=== PATIENT | female | born 1990 | race Caucasian/White ===

== ENCOUNTER 2023-03-05 00:27 | Emergency (ER) | payer MEDICAID, SELFPAY ==
[2023-03-05] VITALS (9 sets, daily range): BP systolic 95–126; BP diastolic 57–81; PULSE 66–82; RESP 16–18; TEMP 36.9; O2SAT 97–100; BMI 28.8
--- NOTE | 2023-03-05 00:46 | W.ED.ABDPA2 ---
HPI - Abdominal Pain General: Chief Complaint: Abdominal Pain Stated Complaint: Sent from [facility] for Twisted Ovary Possible Time Seen by Provider: 03/05/23 00:37 History of Present Illness: 32-year-old lady presenting to the emergency department for evaluation of pelvic pain. She does have a history of dermoid cyst requiring removal. She notes onset of symptoms without known specific provoking event 2 days ago. Describes it as a tearing sensation in her vagina. She was seen at [facility] in [place] however they do not have ultrasonography and was referred here for evaluation of possible torsion. She notes cervical and right lower quadrant abdominal pain. Severe in intensity. Denies vaginal bleeding or discharge. No urinary symptoms. They collected urine GC chlamydia, urinalysis which did not show evidence of urinary tract infection. hCG was negative. WBC 8.8, hemoglobin 12.6, hematocrit 37, platelet 313. CMP with sodium 137, potassium 3.8, chloride 103, bicarb 22, BUN 13, creatinine 0.76. Normal glucose. No transaminitis. Toradol did not significantly improve her symptoms. Onset (ago): day(s) Severity: severe Quality: cramping, stabbing and other Relieving factors: nothing Review of Systems General: Reports: 10 or more systems reviewed and unremarkable except in HPI and below PFSH ED PFSH: Medical History (Updated 03/17/23 @ 20:39 by Timur Carson MD) No significant past medical history Surgical History (Updated 03/17/23 @ 20:39 by Timur Carson MD) No significant past surgical history Physical Exam Const: COMMON NORMALS: alert GENERAL APPEARANCE: cooperative and well developed HENMT: COMMON NORMALS: normocephalic and atraumatic HEAD & SCALP: normocephalic and atraumatic Eye: COMMON NORMALS: conjunctivae normal CONJUNCTIVA: Yes conjunctivae normal SCLERA: sclerae normal Neck/C-Spine: COMMON NORMALS: supple GENERAL: Yes trachea midline Resp: COMMON NORMALS: clear to auscultation bilaterally EFFORT & INSPECTION: Yes able to speak in complete sentences AUSCULTATION: clear to auscultation bilaterally Cardio: COMMON NORMALS: regular rate and regular rhythm RATE: regular rate RHYTHM: regular rhythm GI: COMMON NORMALS: Soft to palpation PALPATION: Yes Soft to palpation, Yes Tenderness to palpation present (GI), No Guarding due to palpation present (GI) and No Rigid due to palpation : OTHER: Performed with consumer relations complaint clerk present. Normal external exam. No abnormality identified on speculum exam. Generalized tenderness with tenderness of the cervix on bimanual exam. No palpable masses or adnexal fullness. Extremity: GENERAL: Yes normal exam except as noted and No edema Neuro: COMMON NORMALS: moves all extremities SENSORIUM/ORIENTATION: Yes alert and No Orientation impaired Psych: COMMON NORMALS: mental status grossly normal and Normal thought process present THOUGHT PROCESS: Normal thought process present Course Vital Signs: Vital signs: Vital Signs Temperature 98.4 F 03/05/23 00:36 Pulse Rate 66 03/05/23 04:47 Respiratory Rate 18 03/05/23 04:47 Blood Pressure 120/74 03/05/23 04:47 Pulse Oximetry 100 03/05/23 04:47 Oxygen Delivery Me thod Room Air 03/05/23 04:33 MDM - Abdominal Pain Medical Decision Making 32-year-old lady present pelvic pain. Exam as above. Outside labs reviewed. Ultrasound shows hemorrhagic left ovarian cyst however pain is mostly on the right and midline. No ovarian torsion. Wet prep negative. Apparently our in-house ability to perform GC/chlamydia testing is currently down and there was an issue with the collected swab however as noted prior facility collected these studies. Patient given fluids and analgesia and feels improved. Etiology of symptoms is unclear. Somewhat low clinical suspicion for infectious etiology-acutely however given cervical motion tenderness and lack of clear explanation for symptoms the guidelines recommend empiric treatment which will be provided. This was discussed with patient who was agreeable. The results of ED evaluation were discussed with the patient including prescriptions and/or symptomatic cares (if applicable) including appropriate and responsible use, followup plan, and return precautions. The patient verbalized understanding and felt safe for discharge. Medical Records I reviewed the patient's medical records. Lab Data I reviewed the patient's lab results. Labs/Radiology: Radiology Impressions Pelvis Ultrasound 03/05/23 01:36 IMPRESSION: 1. Hemorrhagic left ovary cyst. 2. Negative for ovarian torsion. Laboratory Results C.trachomatis RNA (TMA) Cancelled 03/05/23 02:00 Chlamydia/GC Comment Cancelled 03/05/23 02:00 N.gonorrhoeae RNA (TMA) Cancelled 03/05/23 02:00 T. vaginalis Amp RNA Cancelled 03/05/23 02:00 Discharge Plan Discharge Patient Disposition: Home Clinical Impression: Pelvic pain, Ovarian cyst rupture, Cervical motion tenderness Condition: Stable Prescriptions: New ondansetron 4 mg tablet,disintegrating 4 mg PO Q8H PRN (Reason: nausea and vomiting) Qty: 15 0RF oxycodone 5 mg tablet 2.5 mg PO Q4H PRN (Reason: pain) Qty: 10 0RF doxycycline hyclate 100 mg tablet 100 mg PO BID 14 Days Qty: 28 0RF metronidazole 500 mg tablet 500 mg PO Q12H 14 Days Qty: 28 0RF Diflucan 150 mg tablet 150 mg PO Q3D PRN (Reason: yeast infection) Qty: 2 0RF Discharge Orders: Discharge ED (Routine); Ordered 03/05/23 Ordered By: Timur Carson Discharge Diet: Usual diet Discharge Activity: Increase activity as tolerated Patient Instructions: Pelvic Pain in Women (ED), Ruptured Ovarian Cyst (ED), Opioid Safety Activity Restrictions/Additional Instructions: Thank you for visiting the emergency department. You were seen and evaluated for pelvic pain. The exact cause of your symptoms is unclear as discussed. Ultrasound did demonstrate a hemorrhagic left ovarian cyst which may be contributing to your pain. Additional causes are possible infection which will be treated empirically. I would expect improvement in the next few days. You may use [id number] medications such as acetaminophen and ibuprofen for pain however please do not exceed the daily recommended dosage as listed on the packaging and please keep in mind that many namebrand medications contain the same active ingredients. Please avoid these medications if previously instructed to do so by another physician due to other underlying medical condition. Please follow-up with your primary care provider or SPEECH/LANGUAGE THERAPIST physician. Return for uncontrolled symptoms or anything else that you are concerned about and feel needs emergency department evaluation. 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
[2023-03-05] MEDS: sodium chloride 0.9% 1,000 ML 999 ML IV (01:26)
[2023-03-05] MEDS: fentaNYL 50 mcg/mL INJ 2mL IVP ×2 (01:26→03:29)
--- NOTE | 2023-03-05 01:36 | USR_ITS ---
PROCEDURE INFORMATION: Exam: US Pelvis Complete, Transabdominal and US Pelvis, Transvaginal and US Duplex Artery and Vein, Ovaries, Complete Exam date and time: 03/05/2023 2:46 AM Age: 32 years old Clinical indication: Pelvic pain; Prior surgery; Surgery date: 6+ months; Surgery type: Right dermoid cyst excision July 2022. Patient HX: [id number]; Additional info: Rlq pain, eval torsion vs other LABS AND CLINICAL REPORTS: Last menstrual period start date: 02/04/2023 TECHNIQUE: Imaging protocol: Real-time complete transabdominal and transvaginal pelvic ultrasound with image documentation. Transvaginal imaging was used for better evaluation of the endometrium, adnexa, and/or cervix. Real-time duplex ultrasound scan of the arterial and venous flow of the ovaries with B-mode, color Doppler flow and spectral waveform analysis. Duplex exam was performed to evaluate for torsion and other vascular conditions. COMPARISON: No relevant prior studies available. FINDINGS: Uterus: Uterus measures 9.3 cm x 4.6 cm x 4.4 cm. Right ovary/adnexa: Right ovary measures 3.3 cm x 3.9 cm x 2 cm. Right ovarian volume is 11.7 mL. Normal appearance. Small follicles. Unremarkable internal vascularity including normal arterial and venous spectral Doppler waveform pattern. Left ovary/adnexa: Left ovary measures 5.4 cm x 5.8 cm x 4.2 cm. Left ovarian volume is 68.9 mL. Circumscribed hemorrhagic cyst measures 4.8 cm. Normal vascularity including unremarkable arterial and venous spectral Doppler waveform pattern. Intraperitoneal space: Small volume anterior pelvis intraperitoneal fluid. Urinary bladder: Normal. US/US pelvic complete* [id number] IMPRESSION: 1. Hemorrhagic left ovary cyst. 2. Negative for ovarian torsion.
[2023-03-05] MEDS: cefTRIAXone 500 MG in water for injection-sterile 1 ML IM (04:25)
[2023-03-05] MEDS: metroNIDAZOLE 500 MG Tablet PO (04:25)
[2023-03-05] MEDS: doxycycline 100 mg Tablet PO (04:25)
== END 2023-03-05 04:58 | disposition home or self-care (01) ==
PROVIDERS: Emergency Provider Emergency Medicine
DX: R10.2 Pelvic and perineal pain (principal); N83.292 Other ovarian cyst, left side
CPT/HCPCS: 76856; 87070; 87205; 87210; 96361; 96374; 96376; 99284; J0696; J3010; J7030

== ENCOUNTER 2023-06-13 16:00 | Outpatient (CLI) | payer MEDICAID, SELFPAY ==
--- NOTE | 2023-06-13 16:11 | USR_ITS ---
PROCEDURE INFORMATION: Exam: US First Trimester, Transabdominal and US , Transvaginal Exam date and time: 06/13/2023 4:28 PM Age: 33 years old Clinical indication: Screening exam; Routine US, uterus; Additional info: Encounter for supervision of other normal ; First t LABS AND CLINICAL REPORTS: Last menstrual period start date: 03/13/2023 Gestational age (Established): 13 w 1 d Estimated due date (Established): 12/18/2023 TECHNIQUE: Imaging protocol: Real-time transabdominal obstetrical ultrasound of the maternal pelvis and a first trimester , less than 14 weeks 0 days, with image documentation. Transvaginal imaging was used for better evaluation of the fetus, adnexa, and/or cervix. COMPARISON: US pelvic complete* [id number] 03/05/2023 2:46 AM FINDINGS: Gestation: Yolk sac measures 5 mm. Gestational sac with a developing fetus Embryonic/ heart rate: 171 bpm Extra-embryonic membranes/Placenta: Unremarkable. No subchorionic bleed. Amniotic fluid: Amniotic fluid and extra-amniotic fluid is normal for gestational age. BIOMETRY: Gestational age (AUA): 10 w 0 d [place]-Rump length (CRL): 31.1 mm. EGA (CRL) is 10 w 0 d MATERNAL: Uterus: Unremarkable. 9.1 cm x 7.6 cm x 11.7 cm Cervix: Unremarkable. Right ovary/adnexa: Unremarkable ovary. 2.3 cm x 2.2 cm x 3 cm Left ovary/adnexa: Unremarkable ovary. 2.5 cm x 2.2 cm x 2 cm Intraperitoneal space: No intraperitoneal free fluid. US/US OB <= 14 weeks fetus [id number] IMPRESSION: 1. Single living intrauterine gestation. 2. Gestational age 10 weeks. 3. Normal bilateral ovaries
== END 2023-06-13 16:01 | disposition home or self-care (01) ==
LOC: RAD 16:01
PROVIDERS: PCP Family Medicine; Visit Provider Family Medicine
DX: Z34.01 Encounter for supervision of normal first pregnancy, first trimester (principal)
CPT/HCPCS: 76801

== ENCOUNTER 2023-06-23 10:19 | Emergency (ER) | payer MEDICAID, SELFPAY ==
--- NOTE | 2023-06-23 10:28 | US_ITS ---
WS: [id number] EARLY OBSTETRICAL ULTRASOUND (<14 WEEKS). HISTORY: abdominal pain, 12 wks preg COMPARISON: 06/13/2023 Single intrauterine gestational sac is identified. Cardiac activity at 114 BPM. Whiteside-rump length jodi sures 2.7 cm which corresponds to a gestation of 9w3d. Normal-appearing yolk sac and amnion demonstra charlie. No subchorionic hemorrhage. No free fluid. Neither ovary has been identified or evaluated. IMPRESSION: 1. Single intrauterine gestation of 9 weeks 3 days with an EDC of 01/23/2024. 2. Normal cardiac activity. Note: The embryo has not increased in size as normally expected. This may be due to only transabdomin al imaging being submitted. On the examination of 06/13/2023 the age at that time was 10 weeks and 0 days. Recommend short-term transvaginal OB ultrasound evaluation. Notified ISABEL Toscano at 06/23/2023 11:44 AM.
[2023-06-23 10:39] VITALS: BP 95/65; PULSE 68; RESP 16; TEMP 37.1; O2SAT 100; BMI 30.4
[2023-06-23 11:01] LABS: Basophils % 0.3 %; Eosinophils % 0.2 %; Hematocrit 37.1 % (36-47); Lymphocytes # 1.8 10^3/uL (0.8-4.8); Mean Corpuscular HGB Conc 33.7 g/dL (30-55); Mean Corpuscular Hemoglobin 30.9 pg (27-33); Mean Corpuscular Volume 91.8 fl (85-98); Mean Platelet Volume 9.3 fL (7.4-10.4); Monocytes # 0.6 10^3/uL (0.2-0.9); Monocytes % 6.7 %; Neutrophils # 6.18 10^3/uL (1.8-7.7); Neutrophils % 71.5 %; Nucleated Red Blood Cells % 0 %; Platelet Count 314 10^3/cmm (157-399); Red Blood Count 4.04 10^6/uL (3.85-5.65); Red Cell Distribution Width 12.3 % (12.1-15.1); White Blood Count 8.66 10^3/uL (3.29-11.43)
[2023-06-23 11:16] LABS: Alanine Aminotransferase 8 U/L (0-33); Albumin Level 4.2 g/dL (3.5-5.2); Alkaline Phosphatase 48 U/L (35-105); Anion Gap 10.9 (5-19); Aspartate Amino Transferase 12 U/L (0-32); Blood Urea Nitrogen 7 mg/dL (6-20); Calcium 9.5 mg/dL (8.5-10.5); Carbon Dioxide 23 mmol/L (22-29); Chloride 104 mmol/L (98-107); Globulin 3.1 g/dL (1.3-4.6); Glucose 85 mg/dL (65-115); Lipase 21 U/L (13-60); Osmolality Calculated 275 mOsm/kg (285-295); Potassium 3.9 mmol/L (3.5-5.1); Sodium 134 mmol/L (136-145); Total Bilirubin 0.3 mg/dL (0.15-1.2); Total Protein 7.3 g/dL (6.6-8.7)
--- NOTE | 2023-06-23 12:22 | W.ED.ABDPA2 ---
HPI - Abdominal Pain General: Chief Complaint: Abdominal Pain Stated Complaint: shooting pains abd/preg 12 wks Time Seen by Provider: 06/23/23 12:16 Source: patient Mode of arrival: ambulatory History of Present Illness: 33-year-old female comes in today complaining of right-sided pelvic pain radiating down into the groin no dysuria urgency or frequency no vaginal discharge. Its been intermittent overnight no vaginal bleeding. She has not had any complications of this she has had previous miscarriages in the past though she cannot recall exactly how far along she was with those. She currently is at approximately 11 weeks had an ultrasound a week ago that was normal. MD elicited complaint: abdominal pain Pertinent past history: other (Currently 11 weeks) Onset (ago): day(s) Pain Consistency: constant Location: RLQ and Groin Quality: sharp Associated Symptoms: Denies anorexia, belching, bloating, change in bowel habits, change in stool character, chills, coffee ground emesis, constipation, GI cramping, diarrhea, dyspepsia, dysuria, excessive flatus, fever(s), heartburn, hematochezia, hematuria, hematemesis, fecal incontinence, loose stools, melena, nausea, poor appetite, syncope and vomiting Review of Systems Const: Denies: fever(s) or chills Card: Denies: chest pain or syncope Resp: Denies: dyspnea GI: Denies: abdominal pain, nausea, vomiting, hematemesis, coffee ground emesis, heartburn, diarrhea, constipation, bloating, GI cramping, belching, excessive flatus, fecal incontinence, change in bowel habits, change in stool character, hematochezia or melena : Denies: dysuria, urinary frequency, urinary urgency or hematuria Musc: Denies: neck pain or back pain Skin/Breast: Denies: rash PFSH ED PFSH: Medical History No significant past medical history Surgical History No significant past surgical history Physical Exam Const: COMMON NORMALS: no acute distress GENERAL APPEARANCE: cooperative and comfortable ORIENTATION/CONSCIOUSNESS: Yes awake, Yes oriented to person, Yes oriented to place and Yes oriented to time HENMT: COMMON NORMALS: normocephalic, atraumatic and hearing grossly normal bilaterally HEAD & SCALP: normocephalic and atraumatic Resp: COMMON NORMALS: normal respiratory effort, No retractions, No use of accessory muscles and clear to auscultation bilaterally AUSCULTATION: clear to auscultation bilaterally Cardio: COMMON NORMALS: regular rate, regular rhythm and No murmurs present (Cardio) RATE: regular rate RHYTHM: regular rhythm GI: COMMON NORMALS: Soft to palpation and No hepatosplenomegaly present AUSCULTATION: Yes normoactive bowel sounds PALPATION: Yes Soft to palpation, No Tenderness to palpation present (GI), No Guarding due to palpation present (GI) and Yes No hepatosplenomegaly present Extremity: COMMON NORMALS: normal to inspection, capillary refill normal, no clubbing, cyanosis or edema, no calf tenderness and no pedal edema Neuro: SENSORIUM/ORIENTATION: Yes oriented to person, Yes oriented to place and Yes oriented to time Skin: COMMON NORMALS: no rashes or lesions noted GENERAL SKIN EXAM: no rashes or lesions noted Course Vital Signs: Vital signs: Vital Signs Temperature 98.7 F 06/23/23 10:39 Pulse Rate 68 06/23/23 10:39 Respiratory Rate 16 06/23/23 10:39 Blood Pressure 95/65 06/23/23 10:39 Pulse Oximetry 100 06/23/23 10:39 Oxygen Delivery Me thod Room Air 06/23/23 10:39 MDM - Abdominal Pain Medical Decision Making Exam is unremarkable. Ultrasound is normal. Noted in the ultrasound of final dating initially was reported out as 9 weeks and 3 days the internal measurements within that exam however at 11 weeks and 3 days which is consistent with her previous ultrasound called discussed Dr. Mendieta she looked into it and found that the Some sort of internal problem with the ultrasound calculations that put in the final report but the measurements taken actually do indicate appropriate interval growth and that the gestational age today is at 11 weeks and 3 days. They are planning to correct this within the final ultrasound report. I did call patient's attending to make sure she was aware in case the report was evaluated by her office prior to radiology being able to fix the report. Also discussed with the patient to make her aware that there was some sort of software but all the measurements taken through the course of the ultrasound were accurate and showed appropriate interval growth. I suspect her symptoms today are caused by round ligament pain. Discussed findings with her follow-up with Dr. Alves as previously scheduled. Medical Records I reviewed the patient's medical records. Lab Data I reviewed the patient's lab results. 06/23/23 10:52 06/23/23 10:52 Labs/Radiology: Laboratory Results WBC 8.66 10^3/uL (3.29-11.43) 06/23/23 10:52 RBC 4.04 10^6/uL (3.85-5.65) 06/23/23 10:52 Hgb 12.50 g/dL (11.27-16.99) 06/23/23 10:52 Hct 37.1 % (36-47) 06/23/23 10:52 MCV 91.8 fl (85-98) 06/23/23 10:52 MCH 30.9 pg (27-33) 06/23/23 10:52 MCHC 33.7 g/dL (30-55) 06/23/23 10:52 RDW 12.3 % (12.1-15.1) 06/23/23 10:52 Plt Count 314 10^3/cmm (157-399) 06/23/23 10:52 MPV 9.3 fL (7.4-10.4) 06/23/23 10:52 Neut % (Auto) 71.5 % 06/23/23 10:52 Lymph % (Auto) 21.0 % 06/23/23 10:52 [place] % (Auto) 6.7 % 06/23/23 10:52 Eos % (Auto) 0.2 % 06/23/23 10:52 Baso % (Auto) 0.3 % 06/23/23 10:52 Neut # (Auto) 6.18 10^3/uL (1.8-7.7) 06/23/23 10:52 Lymph # (Auto) 1.8 10^3/uL (0.8-4.8) 06/23/23 10:52 [place] # (Auto) 0.6 10^3/uL (0.2-0.9) 06/23/23 10:52 Eos # (Auto) 0.0 10^3/uL (0.0-0.8) 06/23/23 10:52 Baso # (Auto) 0.0 10^3/uL (0.0-0.1) 06/23/23 10:52 Nucleated RBC % (auto) 0 % 06/23/23 10:52 Nucleated RBCs # 0.0 /100WBC 06/23/23 10:52 Sodium 134 mmol/L (136-145) L 06/23/23 10:52 Potassium 3.9 mmol/L (3.5-5.1) 06/23/23 10:52 Chloride 104 mmol/L (98-107) 06/23/23 10:52 Carbon Dioxide 23 mmol/L (22-29) 06/23/23 10:52 Anion Gap 10.9 (5-19) 06/23/23 10:52 BUN 7 mg/dL (6-20) 06/23/23 10:52 Creatinine 0.5 mg/dL (0.5-0.9) 06/23/23 10:52 GFR Calculation 143.0 mL/min (90-130) H 06/23/23 10:52 Glucose 85 mg/dL (65-115) 06/23/23 10:52 Calculated Osmolality 275 mOsm/kg (285-295) L 06/23/23 10:52 Calcium 9.5 mg/dL (8.5-10.5) 06/23/23 10:52 Total Bilirubin 0.3 mg/dL (0.15-1.2) 06/23/23 10:52 AST 12 U/L (0-32) 06/23/23 10:52 ALT 8 U/L (0-33) 06/23/23 10:52 Alkaline Phosphatase 48 U/L (35-105) 06/23/23 10:52 Total Protein 7.3 g/dL (6.6-8.7) 06/23/23 10:52 Albumin 4.2 g/dL (3.5-5.2) 06/23/23 10:52 Globulin 3.1 g/dL (1.3-4.6) 06/23/23 10:52 Lipase 21 U/L (13-60) 06/23/23 10:52 Urine Color Yellow (Yellow) 06/23/23 12:30 Urine Appearance Sl hazy (CLEAR) A 06/23/23 12:30 Urine pH 6.5 (5-7) 06/23/23 12:30 Ur Specific [place] 1.005 (1.005-1.030) 06/23/23 12:30 Urine Protein Neg (Negative) 06/23/23 12:30 Urine Glucose (UA) Norm (Normal) 06/23/23 12:30 Urine Ketones Negative (Negative) 06/23/23 12:30 Urine Blood Neg (Negative) 06/23/23 12:30 Urine Nitrate Negative (Negative) 06/23/23 12:30 Urine Bilirubin Neg (Negative) 06/23/23 12:30 Urine Urobilinogen Norm mg/dL (Negative) 06/23/23 12:30 Ur Leukocyte Esterase Negative (Negative) 06/23/23 12:30 Urine RBC 0-4 /hpf (0-2) H 06/23/23 12:30 Urine WBC 0-4 /hpf (0-5) H 06/23/23 12:30 Ur Squamous Epith Cells 0-4 /hpf (0-5) H 06/23/23 12:30 Amorphous Sediment Not Reportable 06/23/23 12:30 Urine Bacteria 1+ /hpf (NONE) H 06/23/23 12:30 Urine Mucus 1+ /hpf 06/23/23 12:30 All radiology interpretation(s) finalized by discharge Discharge Plan Discharge Patient Disposition: Home Clinical Impression: Pain of round ligament affecting , antepartum, 12 weeks gestation of Condition: Stable Prescriptions: No Action ondansetron 4 mg tablet,disintegrating 4 mg PO Q8H PRN (Reason: nausea and vomiting) Qty: 15 0RF oxycodone 5 mg tablet 2.5 mg PO Q4H PRN (Reason: pain) Qty: 10 0RF Diflucan 150 mg tablet 150 mg PO Q3D PRN (Reason: yeast infection) Qty: 2 0RF Discharge Orders: Discharge ED (Routine); Ordered 06/23/23 Ordered By: Mele Puga Referrals: Karla Alves DO [Primary Care Provider] - Discharge Diet: Usual diet Discharge Activity: Resume usual activity Patient Instructions: Opioid Safety, Pain Management Activity Restrictions/Additional Instructions: You are seen today for right-sided discomfort. Ultrasound was normal. Your urine was normal as well. Recommend you follow-up with Dr. Alves as previously scheduled. Your symptoms today were thought to be related to round ligament pain. 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
[2023-06-23 12:44] LABS: Add Urine Microscopic? YES; Bilirubin Urine Neg (Negative); Blood Urine Neg (Negative); Glucose Urine UA Norm (Normal); Ketones Urine Negative (Negative); Leukocyte Esterase Urine Negative (Negative); Nitrate Urine Negative (Negative); Protein Urine Neg (Negative); Specific Gravity, Urine 1.005 (1.005-1.030); Urine Appearance SL Hazy (CLEAR); Urine Color Yellow (Yellow); Urobilinogen Urine Norm (Negative); pH Urine 6.5 (5-7)
[2023-06-23 12:49] LABS: RBC Urine 0-4 /hpf (0-2); Squamous Epithelial Cell Urine 0-4 /hpf (0-5); WBC Urine 0-4 /hpf (0-5)
[2023-06-23 12:50] LABS: Add Urine Culture? No; Bacteria Urine 1+ /hpf; Mucus Urine 1+ /hpf
== END 2023-06-23 13:31 | disposition home or self-care (01) ==
PROVIDERS: Physician Assistant; Emergency Provider Family Medicine; PCP Family Medicine
DX: O26.891 Other specified pregnancy related conditions, first trimester (principal); R10.2 Pelvic and perineal pain; Z3A.12 12 weeks gestation of pregnancy
CPT/HCPCS: 36415; 76801; 80053; 81001; 83690; 85025; 99284

== ENCOUNTER 2023-07-07 18:11 | Emergency (ER) | payer MEDICAID, SELFPAY ==
--- NOTE | 2023-07-07 18:18 | XRR_ITS ---
PROCEDURE INFORMATION: Exam: XR Right Wrist Exam date and time: 07/07/2023 7:27 PM Age: 33 years old Clinical indication: Pain; Wrist; Right; Additional info: Injury TECHNIQUE: Imaging protocol: Radiologic exam of the right wrist. Views: 3 or more views. COMPARISON: No relevant prior studies available. FINDINGS: Bones/joints: No acute fracture or dislocation. Mineralization is normal. Small nonaggressive lucency in the distal scaphoid. Mild widening of the scapholunate interval. Soft tissues: Unremarkable. XR/XR wrist RT min 3V* [id number] IMPRESSION: 1. No acute fracture. 2. Mild widening of the scapholunate interval suggestive of ligamentous injury.
[2023-07-07 18:20] VITALS: PULSE 84; RESP 16; TEMP 36.7; O2SAT 99; BMI 30.9
[2023-07-07 19:38] VITALS: PULSE 84; RESP 16; TEMP 36.7; O2SAT 99
--- NOTE | 2023-07-07 23:09 | ED_ITS ---
HPI - Extremity Problem General: Chief complaint: Extremity Problem,Nontraumatic Stated complaint: Rt Wrist Injury Time Seen by Provider: 07/07/23 18:23 Source: patient Mode of arrival: ambulatory Limitations: no limitations History of Present Illness: Patient presents emergency department today for evaluation treatment of complaints of right distal forearm pain. Patient states that she was washing dishes and was using the spray nozzle and states as she was spraying [id number], had sudden onset of severe pain between the bones in her distal forearm. 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 She states it feels extremely tight and asked her to try and pull on her hand to try and stretch this area Because it felt balled up . Patient denies feeling tingling or numbness into her fingers. She does have a history of a ganglion cyst reported to the left wrist but none to the right that she is aware of. Review of Systems General: Reports: 10 or more systems reviewed and unremarkable except in HPI and below PFSH ED PFSH: Medical History No significant past medical history Surgical History No significant past surgical history Physical Exam Const: COMMON NORMALS: no acute distress, patient oriented x3 and alert HENMT: COMMON NORMALS: normocephalic, atraumatic and hearing grossly normal bilaterally HEAD & SCALP: normocephalic and atraumatic Eye: COMMON NORMALS: Equal, round and reactive pupils present, EOMs intact bi laterally and conjunctivae normal CONJUNCTIVA: Yes conjunctivae normal PUPIL: Yes Equal, round and reactive pupils present Neck/C-Spine: COMMON NORMALS: full ROM and no JVD Lymph: LYMPHATIC: no lymphadenopathy noted Resp: COMMON NORMALS: normal respiratory effort, No retractions and No use of accessory muscles Cardio: COMMON NORMALS: no JVD and regular rate RATE: regular rate Extremity: NARRATIVE EXTREMITY EXAM: Patient full flexion extension capabilities of the fingers on the right hand. Patient does still have preserved range of motion to the wrist but on palpation is profusely tender to the distal right forearm-especially between the radius and the ulna distally. I cannot palpate any type of cyst or mass in the area. There is no obvious swelling, redness, or bruising present. Neuro: COMMON NORMALS: patient oriented x3 SENSORIUM/ORIENTATION: Yes alert Psych: COMMON NORMALS: mental status grossly normal, Normal thought process present, cooperative and normal affect THOUGHT PROCESS: Normal thought process present Skin: COMMON NORMALS: no rashes or lesions noted and turgor normal GENERAL SKIN EXAM: no rashes or lesions noted and turgor normal Course Vital Signs: Vital signs: Vital Signs Temperature 98.0 F 07/07/23 19:38 Pulse Rate 84 07/07/23 19:38 Respiratory Rate 16 07/07/23 19:38 Pulse Oximetry 99 07/07/23 19:38 Oxygen Delivery Me thod Room Air 07/07/23 18:20 MDM - Extremity (Nontraumatic) Medical Decision Making Based on the patient's location of discomfort and description of pain, she most likely has a connective tissue issue either between the connection of the distal radius and ulna or, issues with her extensor tendons. Radiology read indicated a clinical correlation between possible increase in spacing between the scapholunate joint however, patient is not tender in this area-I specifically checked on her examination (pain is further up into the forearm). Patient was put into a wrist brace and as she is , was recommended to use Tylenol and I prescribed a lidocaine patch for this area. She should avoid NSAIDs. Should also avoid steroids. I referred her on to orthopedics for follow-up sh ould she continue to have issues in this area requiring further evaluation. Patient verbalized understanding and agreement to treatment plan. Differential Diagnosis Unlikely herpes zoster, gout, cellulitis, superficial thrombophlebitis or deep venous thrombosis of upper extremity Lab Data Radiology Impressions Wrist X-Ray 07/07/23 18:18 IMPRESSION: 1. No acute fracture. 2. Mild widening of the scapholunate interval suggestive of ligamentous injury. All radiology interpretation(s) finalized by discharge Discharge Plan Discharge Patient Disposition: Home Clinical Impression: Wrist arthralgia Condition: Stable Prescriptions: New Lidocaine Pain Relief 4 % adhesive patch,medicated 1 patch topical BID PRN (Reason: pain) Qty: 10 0RF No Action ondansetron 4 mg tablet,disintegrating 4 mg PO Q8H PRN (Reason: nausea and vomiting) Qty: 15 0RF oxycodone 5 mg tablet 2.5 mg PO Q4H PRN (Reason: pain) Qty: 10 0RF Diflucan 150 mg tablet 150 mg PO Q3D PRN (Reason: yeast infection) Qty: 2 0RF Discharge Orders: Discharge ED (Routine); Ordered 07/07/23 Ordered By: Sana Leblanc Referrals: Karla Alves, [Primary Care Provider] - Discharge Diet: Usual diet Discharge Activity: Limit activity as instructed Patient Instructions: Arthralgia (ED), Tendinitis (ED) Activity Restrictions/Additional Instructions: X-ray today shows no signs of any acute bony abnormality however, given the location of your discomfort there is a high suspicion for connective tissue or tendinitis flareup. For that reason we do recommend keeping your wrist in a brace anytime you are up and active through the next week or so. This will prevent overstretching and repetitive motion injuries. Given your status, we are relatively limited on the medications you can take however, I have prescribed a topical pain patch for you and encourage you to use ice for 15 to 20 minutes, multiple times throughout the day as well as Tylenol. I have also requested a follow-up appointment with our dentofacial orthopedics dentist should you continue to have issues in this area as you may require an extension on your treatment course and close monitoring. Coding Level of Care Code ED Health Safety Specialist for Awa Day
--- NOTE | 2023-07-08 07:23 | DCPLANNER ---
Message sent to Ortho for Follow up on RT wrist distal Rad/Ulu Pain.
== END 2023-07-07 19:39 | disposition home or self-care (01) ==
PROVIDERS: Emergency Provider Physician Assistant; PCP Family Medicine
DX: M25.531 Pain in right wrist (principal)
CPT/HCPCS: 73110; 99283

== ENCOUNTER 2023-08-19 08:21 | Outpatient (CLI) | payer BC, MEDICAID, SELFPAY ==
--- NOTE | 2023-08-19 08:26 | US_ITS ---
WS: [id number] OBSTETRICAL ULTRASOUND COMPLETE HISTORY: ANATOMY CHECK/SECOND TRIMESTER COMPARISON: 06/23/2023 Single intrauterine gestation in Cephalic presentation. Cervix is Closed and normal length. Cervical length is 3.5 cm. Normal amount of amniotic fluid surrounds the fetus. Placenta: Posterior, no previa or abruption. Placenta grade 1 Heart: 150 BPM. Four chambers are identified. RIGHT and LEFT outflow tracts are unremarkable. Anatomy: Intracranial structures and spine are normal. kidneys, stomach and urinary bladd er are unremarkable. Abdominal wall, three-vessel cord and cord insertion site are normal. 4 extremities are present. profile: Unremarkable. Gender: Female. measurements: BPD = 4.5 cm = 19w4d; 49% HC = 16.8 cm = 19w4d; 40% AC = 14.2 cm = 19w4d; 43% FL = 3.1 cm = 19w3d; 39% EFW: 244 g. Biometry is internally concordant. AGA by ultrasound: 19w4d MADELINE by ultrasound: 01/09/2024 Appropriate growth since the first trimester ultrasound. IMPRESSION: 1. Single intrauterine gestation of 19w4d with an MADELINE of 01/09/2024. Appropriate interval growth. 2. Unremarkable screening survey of anatomy.
== END 2023-08-19 08:22 | disposition home or self-care (01) ==
LOC: RAD 08:21
PROVIDERS: PCP Family Medicine; Visit Provider Family Medicine
DX: Z36.89 Encounter for other specified antenatal screening (principal)
CPT/HCPCS: 76805

== ENCOUNTER 2023-09-10 20:00 | Outpatient (CLI) | payer BC, MEDICAID, SELFPAY ==
[2023-09-10 20:00] VITALS: BMI 32.8
[2023-09-10 20:23] VITALS: BP 104/67; PULSE 73
[2023-09-10 20:28] VITALS: TEMP 36.2
[2023-09-10 20:38] VITALS: RESP 16
--- NOTE | 2023-09-10 20:39 | USR_ITS ---
PROCEDURE INFORMATION: Exam: US , Limited Exam date and time: 09/10/2023 8:58 PM Age: 33 years old Clinical indication: complicated by abdominal or pelvic pain; Generalized abdominal pain; Second trimester (14 weeks 0 days to 27 weeks 6 days); Gestational age or lmp: 22w 5d; ; Patient HX: [id number]-l1; Additional info: Cerival length, endovaginal scanning for cervical lengths LABS AND CLINICAL REPORTS: Last menstrual period start date: 04/04/2023 Gestational age (Established): 22 w 5 d Estimated due date (Established): 01/09/2024 TECHNIQUE: Imaging protocol: Real-time ultrasound of the maternal uterus with image documentation. Exam focused on the clinical indication. COMPARISON: US OB >= 14 weeks fetus [id number] 08/19/2023 8:41 AM FINDINGS: Gestation: Single intrauterine gestation. heart rate: 144 bpm presentation: Cephalic Placenta: Posterior grade 1 placenta without previa. Amniotic fluid: Amniotic fluid volume is normal. Amniotic fluid index: NURYS is 20.51 cm. BIOMETRY: Gestational age (AUA): 22 w 5 d Estimated due date (AUA): 01/09/2024 MATERNAL: Cervix: Cervical length measures 3.63 cm. US/US OB lmt with transvaginal IMPRESSION: 1. Single live intrauterine . 2. Cervix is closed and normal length measuring 3.6 cm.
[2023-09-10 21:22] LABS: Add Urine Culture? No; Bacteria Urine TRACE /hpf; Bilirubin Urine Neg (Negative); Blood Urine Neg (Negative); Glucose Urine UA Norm (Normal); Ketones Urine Negative (Negative); Leukocyte Esterase Urine Negative (Negative); Nitrate Urine Negative (Negative); Protein Urine Neg (Negative); Specific Gravity, Urine 1.005 (1.005-1.030); Squamous Epithelial Cell Urine 0-4 /hpf (0-5); Urine Appearance Clear (CLEAR); Urine Color Yellow (Yellow); Urobilinogen Urine Neg (Negative); pH Urine 7 (5-7)
[2023-09-10 22:29] VITALS: BP 98/57; PULSE 74
[2023-09-10 22:30] VITALS: TEMP 35.8
[2023-09-10 22:53] VITALS: BP 98/57; PULSE 74; RESP 16; TEMP 35.8
== END 2023-09-10 22:30 | disposition home or self-care (01) ==
LOC: OPOB 20:04 → OBGYN 20:05
PROVIDERS: PCP Family Medicine; Visit Provider Family Medicine
DX: O26.892 Other specified pregnancy related conditions, second trimester (principal); Z3A.22 22 weeks gestation of pregnancy; R10.9 Unspecified abdominal pain
CPT/HCPCS: 59025; 76815; 76817; 81001; 99211

== ENCOUNTER 2023-10-24 08:39 | Outpatient (CLI) | payer BC, MEDICAID, SELFPAY ==
--- NOTE | 2023-10-24 09:00 | US_ITS ---
WS: [id number] LIMITED OBSTETRICAL ULTRASOUND HISTORY: GROWTH CHECK/GESTATIONAL DIABETES-2ND TRIMESTER COMPARISON: 06/13/2023, 06/23/2013, 08/19/2023 Presentation: Breech Cervix: Not imaged. Placenta: Posterior, no previa or abruption. Grade: 1 HEART: FHR of 163 BPM. measurements: BPD = 7.0 cm = 28w1d; HC = 26.8 cm = 29w1d; AC = 24.3 cm = 28w5d; FL = 5.5 cm = 29w2d; NURYS: 10.1 cm EFW: 1298.2 g; 32% AGA by ultrasound: 28 weeks 6 days MADELINE by ultrasound: 01/10/2024 IMPRESSION: 1. Single intrauterine gestation of 28 weeks 6 days with an EDC of 01/10/2024. 2. Appropriate growth of the fetus is the first trimester ultrasound. No growth asymmetry. 3. Placenta grade 1. 4. Breech.
== END 2023-10-24 08:40 | disposition home or self-care (01) ==
LOC: RAD 08:40
PROVIDERS: PCP Family Medicine; Visit Provider Family Medicine
DX: O24.419 Gestational diabetes mellitus in pregnancy, unspecified control (principal); O32.1XX0 Maternal care for breech presentation, not applicable or unspecified; Z3A.28 28 weeks gestation of pregnancy
CPT/HCPCS: 76816

== ENCOUNTER 2023-11-14 07:44 | Outpatient (CLI) | payer BC, MEDICAID, SELFPAY ==
--- NOTE | 2023-11-14 07:55 | US_ITS ---
WS: [id number] BIOPHYSICAL PROFILE AMNIOTIC FLUID HISTORY: WEEKLY BPP COMPARISON: 10/24/2023 position: Breech. Cardiac activity: 155 bpm. Cervix: closed. Placenta: Posterior, no previa or abruption. Placenta grade: 1 Parameters are as follows: Breathin Movement: 2 Tone: 2 Fluid volume: 2 Amniotic Fluid Index: 16.1 cm. IMPRESSION: 1. Biophysical profile score: 8/8. 2. Normal amniotic fluid. 3. Breech.
== END 2023-11-14 07:45 | disposition home or self-care (01) ==
LOC: RAD 07:45
PROVIDERS: PCP Family Medicine; Visit Provider Family Medicine
DX: O09.93 Supervision of high risk pregnancy, unspecified, third trimester (principal); O24.419 Gestational diabetes mellitus in pregnancy, unspecified control; Z3A.32 32 weeks gestation of pregnancy
CPT/HCPCS: 76819

== ENCOUNTER 2023-11-28 07:55 | Outpatient (CLI) | payer BC, MEDICAID, SELFPAY ==
--- NOTE | 2023-11-28 08:02 | US_ITS ---
WS: [id number] Exam: [place] [id number] Date/Time of Exam: 11/28/2023 8:05 AM Reason For Exam: FOLLOW UP GROWTH CHECK/HIGH RISK NUMBER: Single PRESENTATION: Cephalic CARDIAC ACTIVITY: 138 MOVEMENT: Satisfactory AMNIOTIC FLUID VOLUME: Subjectively normal PLACENTA: Posterior no abruption or previa. BIPARIETAL DIAMETER MEASUREMENTS: 8.6 cm, equals 34w5d. FEMORAL LENGTH MEASUREMENTS: 6.6 cm, equals 33w6d. ABDOMINAL CIRCUMFERENCE: 29.6 cm, equals 33w4d. ESTIMATED WEIGHT: 2313.8 g; 5 pounds 2 ounces +/-12 ounces, 45th percentile. ESTIMATED GESTATIONAL AGE: 34w3d Not applicable Cervix measures 5.4 cm and is closed. IMPRESSION: Viable intrauterine with single fetus estimated at 34w3d 01/06/2024.
== END 2023-11-28 07:56 | disposition home or self-care (01) ==
LOC: RAD 07:55
PROVIDERS: PCP Family Medicine; Visit Provider Family Medicine
DX: O09.93 Supervision of high risk pregnancy, unspecified, third trimester (principal); Z3A.34 34 weeks gestation of pregnancy
CPT/HCPCS: 76816

== ENCOUNTER 2023-12-17 07:24 | Outpatient (CLI) | payer BC, MEDICAID, SELFPAY ==
--- NOTE | 2023-12-17 07:29 | US_ITS ---
WS: [id number] BIOPHYSICAL PROFILE AMNIOTIC FLUID HISTORY: HIGH RISK -3RD TRIMESTER/GESTATIONAL DIABETES COMPARISON: 11/28/2023 position: Vertex. Cardiac activity: 142 bpm. Cervix: Obscured by the head. Placenta: Posterior and fundal. Placenta grade: 2 Parameters are as follows: Breathin Movement: 2 Tone: 2 Fluid volume: 2 Normal amniotic fluid. IMPRESSION: 1. Biophysical profile score: 8/8. 2. Normal amniotic fluid.
== END 2023-12-17 07:25 | disposition home or self-care (01) ==
LOC: RAD 07:24
PROVIDERS: PCP Family Medicine; Visit Provider Family Medicine
DX: O09.93 Supervision of high risk pregnancy, unspecified, third trimester (principal); O24.419 Gestational diabetes mellitus in pregnancy, unspecified control
CPT/HCPCS: 76819

== ENCOUNTER 2023-12-26 08:14 | Outpatient (CLI) | payer BC, MEDICAID, SELFPAY ==
--- NOTE | 2023-12-26 08:20 | US_ITS ---
WS: [id number] BIOPHYSICAL PROFILE AND LIMITED OB. HISTORY: SUPERVISION OF HIGH RISK 3RD TRIMESTER COMPARISON: 12/17/2023, 06/23/2023, 10/24/2023 Presentation: Vertex. Cervix: Closed and normal length. Placenta: Posterior and fundal. No previa or abruption. Grade: 2 HEART: FHR of 117BPM. measurements: BPD = 9.2 cm = 37w3d; 60% HC = 32.9 cm = 37w3d; 18% AC = 33.2 cm = 37w1d; 41% FL = 7.4 cm = 37w5d; 45% NURYS: 12.1 cm EFW: 3177.5g; 44% AGA by ultrasound: 37w3d MADELINE by ultrasound: 01/13/2024 Measurements are internally concordant. No growth asymmetry. Appropriate growth of the fetus since e first trimester ultrasound. weight appears to be progressing appropriately. Biophysical profile: Parameters are as follows: Breathin Movement: 2 Tone: 2 Fluid volume: 2 Amniotic fluid index: 12.1 cm. IMPRESSION: 1. Biophysical profile score: 8/8. 2. Single intrauterine gestation of 37w3d with an 01/13/2024. Appropriate growth since the most recen t ultrasound and also the first trimester ultrasound. 3. No growth asymmetry. 4. Estimated weight at the 44th percentile.
== END 2023-12-26 08:15 | disposition home or self-care (01) ==
LOC: RAD 08:15
PROVIDERS: PCP Family Medicine; Visit Provider Family Medicine
DX: O09.93 Supervision of high risk pregnancy, unspecified, third trimester (principal); O24.419 Gestational diabetes mellitus in pregnancy, unspecified control; Z3A.37 37 weeks gestation of pregnancy
CPT/HCPCS: 76819

== ENCOUNTER 2023-12-26 09:10 | Outpatient (CLI) | payer BC, MEDICAID, SELFPAY ==
[2023-12-26 09:21] VITALS: RESP 16; TEMP 36.3
[2023-12-26 09:23] VITALS: BMI 36.6
[2023-12-26 09:25] VITALS: BP 108/72; PULSE 102
[2023-12-26 09:28] VITALS: RESP 16
[2023-12-26 09:37] VITALS: BP 108/66; PULSE 92
== END 2023-12-26 09:48 | disposition home or self-care (01) ==
LOC: OPOB 09:16 → OBGYN 09:17
PROVIDERS: PCP Family Medicine; Visit Provider Family Medicine
DX: O24.419 Gestational diabetes mellitus in pregnancy, unspecified control (principal); Z3A.00 Weeks of gestation of pregnancy not specified
CPT/HCPCS: 59025

== ENCOUNTER 2023-12-28 01:40 | Outpatient (CLI) | payer BC, MEDICAID, SELFPAY ==
[2023-12-28 01:50] VITALS: BMI 37.0
[2023-12-28 02:06] VITALS: BP 100/59; PULSE 98
[2023-12-28 02:38] VITALS: BP 102/55; PULSE 86
[2023-12-28 02:51] VITALS: BP 102/56; PULSE 94
== END 2023-12-28 03:09 | disposition home or self-care (01) ==
LOC: OPOB 01:49 → OBGYN 02:59
PROVIDERS: PCP Family Medicine; Visit Provider Family Medicine
DX: O26.899 Other specified pregnancy related conditions, unspecified trimester (principal); Z3A.00 Weeks of gestation of pregnancy not specified; R10.9 Unspecified abdominal pain
CPT/HCPCS: 59025; 99211

== ENCOUNTER 2023-12-30 07:44 | Outpatient (CLI) | payer BC, MEDICAID, SELFPAY ==
--- NOTE | 2023-12-30 07:48 | US_ITS ---
WS: [id number] BIOPHYSICAL PROFILE AMNIOTIC FLUID HISTORY: HIGH RISK , THIRD TRIMESTER/GESTATIONAL DIABETES COMPARISON: 12/26/2023 position: Vertex. Cardiac activity: 131 bpm. Cervix: Obscured by the head. Placenta: Posterior, no previa or abruption. Placenta grade: 2 Parameters are as follows: Breathin Movement: 2 Tone: 2 Fluid volume: 2 Normal amniotic fluid. US/[place] [id number] IMPRESSION: 1. Biophysical profile score: 8/8. 2. Normal amniotic fluid. 3. Vertex.
== END 2023-12-30 07:45 | disposition home or self-care (01) ==
LOC: RAD 07:45
PROVIDERS: PCP Family Medicine; Visit Provider Family Medicine
DX: O24.419 Gestational diabetes mellitus in pregnancy, unspecified control (principal); O09.93 Supervision of high risk pregnancy, unspecified, third trimester
CPT/HCPCS: 76819

== ENCOUNTER 2023-12-30 08:19 | Outpatient (CLI) | payer BC, MEDICAID, SELFPAY ==
[2023-12-30 08:19] VITALS: BMI 36.7
[2023-12-30 08:33] VITALS: BP 106/71; PULSE 85
[2023-12-30 08:53] VITALS: BP 112/65; PULSE 70
== END 2023-12-30 09:00 | disposition home or self-care (01) ==
LOC: OPOB 08:23 → OBGYN 08:24
PROVIDERS: PCP Family Medicine; Visit Provider Family Medicine
DX: O24.419 Gestational diabetes mellitus in pregnancy, unspecified control (principal); Z3A.00 Weeks of gestation of pregnancy not specified
CPT/HCPCS: 59025

== ENCOUNTER 2024-01-02 00:08 | Inpatient (IN) | payer BC, MEDICAID, SELFPAY ==
[2024-01-01 23:53] VITALS: BMI 37.8
[2024-01-02] VITALS (69 sets, daily range): BP systolic 59–121; BP diastolic 37–82; PULSE 61–103; RESP 16–17; TEMP 35.4–36.4; O2SAT 90–100
[2024-01-02 01:02] LABS: Glucose Point of Care 95 mg/dL (70-110)
[2024-01-02 01:04] LABS: Basophils % 0.2 %; Eosinophils # 0.1 10^3/uL (0.0-0.8); Eosinophils % 0.5 %; Hematocrit 31.7 % (36-47); Lymphocytes # 2.2 10^3/uL (0.8-4.8); Lymphocytes % 18.3 %; Mean Corpuscular HGB Conc 33.8 g/dL (30-55); Mean Corpuscular Hemoglobin 29.5 pg (27-33); Mean Corpuscular Volume 87.3 fl (85-98); Monocytes # 1.1 10^3/uL (0.2-0.9); Monocytes % 9.1 %; Neutrophils # 8.48 10^3/uL (1.8-7.7); Neutrophils % 70.8 %; Nucleated Red Blood Cells % 0 %; Platelet Count 305 10^3/cmm (157-399); Red Blood Count 3.63 10^6/uL (3.85-5.65); White Blood Count 11.97 10^3/uL (3.29-11.43)
[2024-01-02] MEDS: miSOPROStol 100 mcg tablet 25 MCG VAGINAL ×2 (01:51→06:27)
[2024-01-02] MEDS: alum-mag-hydroxide-sime 30 mL UDC PO (02:05)
--- NOTE | 2024-01-02 07:45 | PM.OBGYHP ---
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 She denies cramping/contractions, vaginal bleeding, LOF. Good movement on admission. course complicated by gestational diabetes- required metformin treatment. testing has been wnl. EFW on 12/26/23 is 3177.5g; 44% labs significant for A negative blood type- she has received rhogam 10/23/23 and negative antibody screen x 2 Present Details : 3 Para: 1 Labs Blood type OB HPI: A (-) negative Rubella: Immune RPR: Negative GBS: Negative HBsAG: Negative Other Lab Information: HCV Ab NR HIV negative Initial H/H 13.0/38.0 Pap smear NILM, HPV negative CF screen negative for 32 mutations tested [id number] negative for trisomy 13, 18, 21 1hr GTT failed 146 3hr GTT failed 56/81/206/142 3rd trimester H/H 11.4/33.3 Review of Systems Const: Denies: fever(s) or chills Card: Reports: swelling of feet/ankles; Denies: chest pain or palpitations Resp: Denies: dyspnea or productive cough Medications/Allergies Home Medications Medication Instructions Recorded Confirmed Last Taken Type 1 cap PO DAILY 12/26/23 01/02/24 12/26/23 08:00 History metformin 500 mg tablet,extended 1,000 mg PO BID 12/26/23 01/02/24 12/26/23 08:00 History release 24 hr Allergies Allergy/AdvReac Type Severity Reaction Status Date / Time acetaminophen [From Percocet] Allergy ADR-Nausea Verified 01/02/24 05:37 oxycodone [From Percocet] Allergy ADR-Nausea Verified 12/26/23 09:36 prednisone Allergy ALGY-Anaphy Verified 12/26/23 09:36 laxis tramadol Allergy ADR-Seizure Verified 12/26/23 09:36 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 PRODUCTION ESTIMATOR PFSH: Medical History No significant past medical history Surgical History No significant past surgical history Vitals/I&O/Wt Last Vital Signs Temp 97.2 F L 01/02/24 00:18 Pulse 86 01/02/24 00:55 BP 106/65 01/02/24 00:55 Weight last 48 hrs Weight 220 lb Physical Exam Const: COMMON NORMALS: no acute distress, average body habitus, healthy appearing and alert Resp: COMMON NORMALS: normal respiratory effort and clear to auscultation bilaterally Cardio: COMMON NORMALS: no JVD, regular rate, regular rhythm, S1 normal heart sound present and S2 normal heart sound present GI: OTHER: Gravid- size=dates : OTHER: SVE on admission /-3 per RN Extremity: NARRATIVE EXTREMITY EXAM: No LE edema noted Psych: COMMON NORMALS: cooperative and normal affect Data 01/02/24 00:50 Results Labs OB ([facility]): Obstetrics US 11/28/23 Obstetrics US/Biophysical Profile 12/30/23 Blood Type A Negative 01/02/24 Antibody Screen Negative 01/02/24 Hct 31.7 % (36-47) L 01/02/24 Hgb 10.70 g/dL (11.27-16.99) L 01/02/24 Rho(D) Type Rh negative 01/02/24 Plt Count 305 10^3/cmm (157-399) 01/02/24 A&P Assessment and plan (1) Elective induction of labor planned: (2) Gestational diabetes: (3) Term : Plan 33yo at 39w0d admitted for elective induction of labor with gestational diabetes. She has dexcom in place- initial fingerstick 95 with dexcom reading of 89. Ok to use dexcom but should confirm any low or high blood sugars with fingersticks. Cytotec x 2 initially- next recheck around 10:30am and to evaluate plan of care at that time. Discussed induction methods with patient and she is agreeable to proceed. May have epidural when desired- fentanyl protocol. Routine CBC, blood typing. Attestations Medical Necessity Statement*: Sarah Horner's hospital stay will require greater than 2 midnights for labor and delivery and care. Coding Level of Care Code Acute Code for Chg Fwd Diagnoses Elective induction of labor planned Gestational diabetes O24.419 Term Z34.90
[2024-01-02] MEDS: lactated ringers 1,000 ML 125 ML IV ×2 (11:25→17:33)
[2024-01-02] MEDS: oxytocin 30 UNIT/500 ML BAG IV (11:25)
[2024-01-02] MEDS: fentaNYL 50 mcg/mL INJ 2mL IVP ×2 (12:05→14:25)
[2024-01-02] MEDS: ondansetron 2 mg/ML SDV 2 mL 4 MG IVP (12:25)
[2024-01-02] MEDS: lactated ringers 1,000 ML 999 ML IV ×2 (14:25→15:43)
[2024-01-02] MEDS: ROPivacaine syringe 100 MG/50 ML SYRINGE 10 MG EPIDURAL ×2 (15:56→19:12)
[2024-01-02 17:44] LABS: Glucose Point of Care 110 mg/dL (70-110)
[2024-01-02 17:44] LABS: Glucose Point of Care 89 mg/dL (70-110)
[2024-01-02 18:21] LABS: Glucose Point of Care 80 mg/dL (70-110)
--- NOTE | 2024-01-02 22:31 | P.PCNOB_ITS ---
Delivery Note: Date of delivery: January 02, 2024 Pre-delivery diagnoses: Term Gestational diabetes Post-delivery diagnoses: Term delivery of viable female Gestational diabetes Procedure: Spontaneous vaginal delivery Delivering Physician: Karla Alves DO Estimated blood loss (mL): 150 Pre-Delivery Course: Admitted on 01/02/2024 at midnight for induction of labor. She was given Cytotec x 2 and checked every 4 hours with minimal change from initial SVE of 1/50/-3 to 1/50/-2 to 2/60/-2. She was then started on low-dose Pitocin which with gradual increase in painful contractions. She then requested epidural for anesthesia. After obtaining epidural SVE was 2.5/60/-2. AROM was then performed at approximately 5:30 PM with moderate amount of clear fluid. Category 1 heart tones noted throughout. Following AROM SVE 3/80/-2. She then fairly quickly progressed to complete with Pitocin augmentation. Delivery: Patient progressed to complete. Patient placed in lithotomy position. Patient pushed with adequate effort. Head delivered in OA position, no nuchal cord was present. Shoulders and rest of body delivered without difficulty with adequate epidural anesthesia. Mouth and nares bulb suctioned. placed on maternal abdomen. Cord clamped and cut after 1 minute delay. Placenta spontaneously delivered and intact. Pitocin started. Fundus was noted to be firm with massage. The vagina and cervix were inspected and small first-degree midline vaginal laceration and periurethral abrasions were noted. First-degree laceration continue to bleed and so was repaired with 3-0 Vicryl suture. Patient also requested removal of vaginal skin tag and it was clamped and cut at the pedicle. Noted to have small trickle bleed with fundal massage and so lower uterine segment was swept free of clots and a large clot was expressed. Following fundus was again noted to be firm. Female born at 2201 on 01/02/2023 with 9/9 weighing 7 pounds 10 ounces and measuring 21 inches in length, 13.5 head circumference and 12.75 inches chest circumference Placenta noted to be intact with centrally inserted umbilical cord and three- vessel cord. Complications: Maternal none none A&P Assessment and plan (1) Spontaneous vaginal delivery: Coding Level of Care Code Acute Code for Chg Fwd Diagnoses Spontaneous vaginal delivery O80
[2024-01-02] MEDS: oxytocin 30 UNIT/500 ML BAG 125 UNIT IV (23:20)
[2024-01-03] VITALS (10 sets, daily range): BP systolic 95–120; BP diastolic 57–77; PULSE 75–94; RESP 16–18; TEMP 36.4–37.1; O2SAT 98
[2024-01-03] MEDS: benzocaine-menthol 78 gm Canister 1 SPRAY TOPICAL (01:30)
[2024-01-03] MEDS: acetaminophen 325 mg Tablet 650 MG PO ×2 (02:52→22:38)
--- NOTE | 2024-01-03 08:00 | ANE.PACU2 ---
Inpatient post-anesthesia follow up: Airway intact: Yes Vital signs: Temperature 97.8 F Pulse Rate 62 Respiratory Rate 16 Blood Pressure 125/76 Pulse Oximetry 98 Oxygen Delivery Me thod Room Air Oxygen Flow Rate Fraction of Inspir ed Oxygen Hydration adequate: Yes Nausea and vomiting: No Pain level: 1 Mental status: Baseline Epidural Start/End: Epidural Start Date: 01/02/24 Epidural Start Time: 15:30 Epidural End Date: 01/02/24 Epidural End Time: 21:29
--- NOTE | 2024-01-03 08:04 | P.PN_ITS ---
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 Patient is breast-feeding with formula supplementation due to pain with latch. does have an upper lip tie. She is tolerating a normal diet without nausea or vomiting. Vaginal bleeding is minimal. She does have some low back pain and a sore but otherwise pain has been well-controlled. She does still have the Dexcom on and sugars this morning are in the 90s. Labor: Station: +2 Amniotic Membrane Status: Ruptured Monitor Mode: External Contraction Pattern: Regular Status: Category I Vitals/I&O/Wt Last Vital Signs Temp 97.6 F 01/03/24 06:00 Pulse 91 01/03/24 06:00 Resp 18 01/03/24 06:00 BP 120/68 01/03/24 06:00 Pulse Ox 98 01/02/24 16:34 O2 Del Method Room Air 01/01/24 23:53 01/02/24 01/03/24 01/03/24 22:59 06:59 14:59 Intake Total 2847.533 / 3850.616 632.384 / 4483.000 Output Total 600 / 600 Balance 2847.533 / 3850.616 32.384 / 3883.000 Weight last 48 hrs Weight 220 lb Physical Exam 2 Const: COMMON NORMALS: no acute distress, average body habitus, healthy appearing and alert Neck/C-Spine: COMMON NORMALS: no JVD Resp: COMMON NORMALS: normal respiratory effort and clear to auscultation bilaterally AUSCULTATION: clear to auscultation bilaterally Cardio: COMMON NORMALS: no JVD, regular rate, regular rhythm, S1 normal heart sound present and S2 normal heart sound present RATE: regular rate RHYTHM: regular rhythm HEART SOUNDS: S1 normal heart sound present and S2 normal heart sound present : OTHER: Uterine fundus is firm and at the umbilicus Extremity: NARRATIVE EXTREMITY EXAM: Trace pitting lower extremity edema Neuro: SENSORIUM/ORIENTATION: Yes alert Psych: COMMON NORMALS: cooperative and normal affect Urinary Catheter Management: Foster Latex: Cath Placed During This Visit: yes Reason for Continuing Indwelling Catheter: Acute Urinary Retention or Obstruction Urinary Catheter Date of Insertion: 01/02/24 Urinary Catheter Time of Insertion: 16:35 Data 01/02/24 00:50 A&P Assessment and plan (1) Spontaneous vaginal delivery: (2) Gestational diabetes: Plan Routine care. Metformin has been discontinued and discussed outpatient testing for diabetes . Encourage ambulation, may shower. Regular diet. Routine CBC later today. Anticipate discharge home tomorrow. Attestations 2 Medical Necessity Statement*: Sarah Horner's hospital stay will require greater than 2 midnights for labor and delivery and care. Coding Level of Care Code Acute Code for Chg Fwd Diagnoses Spontaneous vaginal delivery O80 Gestational diabetes O24.419
[2024-01-03] MEDS: ibuprofen 800 mg tablet PO ×3 (08:53→20:09)
[2024-01-03] MEDS: PRENATAL VIT NO.130/IRON/FOLIC 1 EACH TABLET PO (08:53)
[2024-01-03] MEDS: ferrous sulfate EC 325 mg Tablet PO (08:53)
[2024-01-03] MEDS: docusate sodium 100 mg Capsule PO ×2 (08:53→20:08)
[2024-01-03 11:22] LABS: Hematocrit 33.6 % (36-47); Mean Corpuscular HGB Conc 33.3 g/dL (30-55); Mean Corpuscular Hemoglobin 29.2 pg (27-33); Mean Corpuscular Volume 87.5 fl (85-98); Mean Platelet Volume 10.1 fL (7.4-10.4); Platelet Count 330 10^3/cmm (157-399); Red Blood Count 3.84 10^6/uL (3.85-5.65); White Blood Count 13.81 10^3/uL (3.29-11.43)
[2024-01-04 04:54] VITALS: BP 119/73; PULSE 66; RESP 16; TEMP 36.6; O2SAT 98
[2024-01-04] MEDS: acetaminophen 325 mg Tablet 650 MG PO (05:03)
--- NOTE | 2024-01-04 08:53 | PM.OBGYDC ---
Discharge Providers RN PSYCHIATRIC Date of Admission: 01/02/24 00:08 Date of Discharge: 01/05/24 Attending Provider at Admission: Karla Alves DO Attending Provider at Discharge: Karla Alves DO Primary Care Provider: Karla Alves DO Diagnoses at Discharge Discharge Diagnosis (1) Spontaneous vaginal delivery: Status: Acute (2) Gestational diabetes: Status: Inactive Reason for Visit Reason for Visit: IOL Hospital Course Hospital Course Pre-Delivery Course: Admitted on 01/02/2024 at midnight for induction of labor. She was given Cytotec x 2 and checked every 4 hours with minimal change from initial SVE of 1/50/-3 to 1/50/-2 to 2/60/-2. She was then started on low-dose Pitocin which with gradual increase in painful contractions. She then requested epidural for anesthesia. After obtaining epidural SVE was 2.5/60/-2. AROM was then performed at approximately 5:30 PM with moderate amount of clear fluid. Category 1 heart tones noted throughout. Following AROM SVE 3/80/-2. She then fairly quickly progressed to complete with Pitocin augmentation. Delivery: Patient progressed to complete. Patient placed in lithotomy position. Patient pushed with adequate effort. Head delivered in OA position, no nuchal cord was present. Shoulders and rest of body delivered without difficulty with adequate epidural anesthesia. Mouth and nares bulb suctioned. Infant placed on maternal abdomen. Cord clamped and cut after 1 minute delay. Placenta spontaneously delivered and intact. Pitocin started. Fundus was noted to be firm with massage. The vagina and cervix were inspected and small first-degree midline vaginal laceration and periurethral abrasions were noted. First-degree laceration continue to bleed and so was repaired with 3-0 Vicryl suture. Patient also requested removal of vaginal skin tag and it was clamped and cut at the pedicle. Noted to have small trickle bleed with fundal massage and so lower uterine segment was swept free of clots and a large clot was expressed. Following fundus was again noted to be firm. Female born at 2201 on 01/02/2023 with 9/9 weighing 7 pounds 10 ounces and measuring 21 inches in length, 13.5 head circumference and 12.75 inches chest circumference Placenta noted to be intact with centrally inserted umbilical cord and three-vessel cord. Complications: Maternal none Infant none Patient underwent on 01/02/24. course was uncomplicated Following delivery patient ambulated well, tolerated a normal diet without nausea or vomiting. Pain was well on PO medications, bottle feeding well, no leg/calf pain, no calf/leg swelling, normal urination, passing gas and normal bowel movements. Vaginal bleeding thin lochia and decreasing labs significant for hemoglobin of 11.2 up from 10.7 on admission. Follow-up planned for 2 and 6 weeks . Warning signs for endometritis, pre-eclampsia, DVT/PE, mastitis were reviewed, discussed additional warning signs including increased vaginal bleeding, worsening abdominal pain. Pelvic rest and activity precautions reviewed as well. Metformin is discontinued and plan for diabetes testing outpatient. Rhogam given prior to discharge due to blood type A+ and maternal blood type A-. She is discharged on 01/04/24 in stable condition. Information Peripartum Data: Delivery Method: Vaginal Physical Exam Const: COMMON NORMALS: no acute distress, average body habitus, healthy appearing and alert Neck/C-Spine: COMMON NORMALS: no JVD Resp: COMMON NORMALS: normal respiratory effort and clear to auscultation bilaterally AUSCULTATION: clear to auscultation bilaterally Cardio: COMMON NORMALS: no JVD, regular rate, regular rhythm, S1 normal heart sound present and S2 normal heart sound present RATE: regular rate RHYTHM: regular rhythm HEART SOUNDS: S1 normal heart sound present and S2 normal heart sound present : OTHER: Uterine fundus is firm and at the umbilicus Extremity: NARRATIVE EXTREMITY EXAM: Trace pitting lower extremity edema Neuro: SENSORIUM/ORIENTATION: Yes alert Psych: COMMON NORMALS: cooperative and normal affect Urinary Catheter Management: Foster Latex: Cath Placed During This Visit: yes Reason for Continuing Indwelling Catheter: Acute Urinary Retention or Obstruction Urinary Catheter Date of Insertion: 01/02/24 Urinary Catheter Time of Insertion: 16:35 Discharge Data Studies Completed and Pending Pending at discharge Category Date Time Status Complete Crossmatch Stat Lab 01/02/24 00:50 Results Rho D Immune Globulin Stat Lab 01/02/24 00:50 Results Type and Screen Stat Lab 01/02/24 00:50 Results Laboratory Results WBC 13.81 10^3/uL (3.29-11.43) H 01/03/24 10:30 RBC 3.84 10^6/uL (3.85-5.65) L 01/03/24 10:30 Hgb 11.20 g/dL (11.27-16.99) L 01/03/24 10:30 Hct 33.6 % (36-47) L 01/03/24 10:30 MCV 87.5 fl (85-98) 01/03/24 10:30 MCH 29.2 pg (27-33) 01/03/24 10:30 MCHC 33.3 g/dL (30-55) 01/03/24 10:30 RDW 14.0 % (12.1-15.1) 01/03/24 10:30 Plt Count 330 10^3/cmm (157-399) 01/03/24 10:30 MPV 10.1 fL (7.4-10.4) 01/03/24 10:30 Neut % (Auto) 70.8 % 01/02/24 00:50 Lymph % (Auto) 18.3 % 01/02/24 00:50 [place] % (Auto) 9.1 % 01/02/24 00:50 Eos % (Auto) 0.5 % 01/02/24 00:50 Baso % (Auto) 0.2 % 01/02/24 00:50 Neut # (Auto) 8.48 10^3/uL (1.8-7.7) H 01/02/24 00:50 Lymph # (Auto) 2.2 10^3/uL (0.8-4.8) 01/02/24 00:50 [place] # (Auto) 1.1 10^3/uL (0.2-0.9) H 01/02/24 00:50 Eos # (Auto) 0.1 10^3/uL (0.0-0.8) 01/02/24 00:50 Baso # (Auto) 0.0 10^3/uL (0.0-0.1) 01/02/24 00:50 Nucleated RBC % (auto) 0 % 01/02/24 00:50 Nucleated RBCs # 0.0 /100WBC 01/02/24 00:50 POC Glucose 80 mg/dL (70-110) 01/02/24 18:18 Blood Type A Negative 01/02/24 00:50 Rho(D) Type Rh negative 01/02/24 00:50 Antibody Screen Negative 01/02/24 00:50 Screen Negative (Negative) 01/03/24 10:30 Vitals Last Vital Signs Temp 97.8 F 01/04/24 04:54 Pulse 66 01/04/24 04:54 Resp 16 01/04/24 04:54 BP 119/73 01/04/24 04:54 Pulse Ox 98 01/04/24 04:54 O2 Del Method Room Air 01/04/24 04:54 Results Labs OB ([facility]): Obstetrics US 11/28/23 Obstetrics US/Biophysical Profile 12/30/23 Blood Type A Negative 01/02/24 Antibody Screen Negative 01/02/24 Hct 33.6 % (36-47) L 01/03/24 Hgb 11.20 g/dL (11.27-16.99) L 01/03/24 Rho(D) Type Rh negative 01/02/24 Plt Count 330 10^3/cmm (157-399) 01/03/24 Discharge Plan Discharge Patient Disposition: Home Condition: Stable Prescriptions: New ibuprofen 800 mg Tablet 800 mg PO TID Qty: 90 0RF docusate sodium 100 mg Capsule 100 mg PO BID Qty: 60 0RF Continued capsule 1 cap PO DAILY Discontinued metformin 500 mg Tablet Extended Release 24 Hr 1,000 mg PO BID Discharge Orders: Discharge Order (Routine); Ordered 01/04/24 Ordered By: Karla Alves Discharge Diet: Regular Discharge Activity: Increase activity as tolerated Patient Instructions: Depression (DC), Preeclampsia and Eclampsia After Delivery (GEN), Hemorrhage (DC), OB Discharge Report, OB Food/Drug Interaction Guide, OB Care at Home, Opioid Safety, OB Vaginal Deliveries, Abnormal Bleeding Activity Restrictions/Additional Instructions: Pelvic rest for 6 weeks. Follow-up at [address] Alves. Discharge Attestations RN PSYCHIATRIC Time Spent in Discharge Care*: less than 30 min Coding Level of Care Code Acute Code for Chg Fwd Diagnoses Spontaneous vaginal delivery O80 Gestational diabetes O24.419
[2024-01-04 09:41] VITALS: BP 125/76; PULSE 62; RESP 16; TEMP 36.6; O2SAT 98
[2024-01-04] MEDS: ferrous sulfate EC 325 mg Tablet PO (09:42)
[2024-01-04] MEDS: ibuprofen 800 mg tablet PO (09:42)
[2024-01-04] MEDS: PRENATAL VIT NO.130/IRON/FOLIC 1 EACH TABLET PO (09:42)
[2024-01-04] MEDS: docusate sodium 100 mg Capsule PO (09:42)
[2024-01-04 09:50] VITALS: BP 125/76; PULSE 62; RESP 16; TEMP 36.6; O2SAT 98
== END 2024-01-04 11:30 | disposition home or self-care (01) | DRG 807 ==
LOC: OPOB 05:13 → OBGYN 05:13
PROVIDERS: Admitting Provider Family Medicine; PCP Family Medicine; Visit Provider Family Medicine
DX: O24.425 Gestational diabetes mellitus in childbirth, controlled by oral hypoglycemic drugs (principal); Z37.0 Single live birth; O70.0 First degree perineal laceration during delivery; Z3A.39 39 weeks gestation of pregnancy; O26.893 Other specified pregnancy related conditions, third trimester; Z67.11 Type A blood, Rh negative
CPT/HCPCS: 36415; 36416; 36430; 51702; 59409; 82962; 85025; 85027; 85460; 86850; 86900; 90384; 96374; J2405; J2590; J2795; J3010; J7120

== ENCOUNTER 2024-02-24 22:34 | Emergency (ER) | payer BC, MEDICAID, SELFPAY ==
[2024-02-24 22:40] VITALS: BP 152/106; PULSE 76; RESP 14; TEMP 36.9; O2SAT 97
--- NOTE | 2024-02-24 23:01 | ED_ITS ---
Documented by User: Dennys Quiroz DO 02/24/24 23:04 HPI - Dental/Oral General: Chief complaint: Dental/Oral Stated complaint: Mouth pain Time Seen by Provider: 02/24/24 22:48 [facility] ED PFSH: Medical History Gestational diabetes No significant past medical history Surgical History No significant past surgical history Procedures Nerve Block Nerve Block 1: Time out performed: Yes Local Anesthetic: bupivacaine 0.5% Amount of anesthesia used (mL): 5 Side: left Nerve Blocks: other (alvolar left ) Intraoral Nerve Block: inferior alveolar Procedure Successful: Yes Patient Tolerated Procedure: well and no complications Course Vital Signs: Vital signs: Vital Signs Temperature 98.5 F 02/24/24 22:40 Pulse Rate 76 02/24/24 22:40 Respiratory Rate 14 02/24/24 22:40 Blood Pressure 152/106 02/24/24 22:40 Pulse Oximetry 97 02/24/24 22:40 Oxygen Delivery Me thod Room Air 02/24/24 22:40 Discharge Plan Discharge Patient Disposition: Home Clinical Impression: Fracture of tooth Qualifiers: Encounter type: subsequent encounter Fracture type: closed Fracture healing: with delayed healing Qualified Code(s): S02.5XXG - Fracture of tooth (traumatic), subsequent encounter for fracture with delayed healing Condition: Stable Prescriptions: New hydrocodone-acetaminophen 7.5-325 mg tablet 1 tab PO Q8H PRN (Reason: pain) Qty: 20 0RF amoxicillin-pot clavulanate 875-125 mg tablet 1 tab PO BID 10 Days Qty: 20 0RF Lidocaine Viscous 2 % solution 1 applic mucous membrane DAILY PRN (Reason: pain) Qty: 100 0RF ondansetron HCl 4 mg tablet 4 mg PO Q8H Qty: 30 0RF No Action ibuprofen 800 mg Tablet 800 mg PO TID Qty: 90 0RF docusate sodium 100 mg Capsule 100 mg PO BID Qty: 60 0RF capsule 1 cap PO DAILY Discharge Orders: Discharge ED (Routine); Ordered 02/24/24 Ordered By: Jeremy Almanzar Referrals: Karla Alves DO [Primary Care Provider] - Patient Instructions: Opioid Safety, Pain Management Activity Restrictions/Additional Instructions: Take antibiotics as prescribed. Pain medications. Viscous lidocaine for relief. Please follow-up with dentist/oral surgeon as discussed. Return with any new or worsening. Coding Level of Care Code ED Professor Of Floriculture for Awa Fwd Documented by User: ISABEL Babin 02/24/24 23:37 HPI - Dental/Oral General: Chief complaint: Dental/Oral Stated complaint: Mouth pain Time Seen by Provider: 02/24/24 22:48 Source: patient Mode of arrival: ambulatory Limitations: no limitations History of Present Illness: Patient is a 33-year-old female presenting to the emergency department complaining of left lower dental pain onset chronically but worsening over the past couple days. Patient states she fractured her tooth during which occurred multiple months ago, however it it suddenly got worse today. She was seen by her dentist as well as her primary care today, where she was both times told to follow-up with oral surgery. She arrives tonight stating that the pain is unbearable and she just wants something to control it so that she can go to sleep. She does plan on going to [place] in the next couple of days to cons ult with oral surgery. She states the pain is to her left face now, and believes she has a dental abscess. No fever or other symptoms reported at this time. MD Complaint: tooth pain Onset (ago): month(s) Duration: worsening Severity: severe Relieving factors: nothing Exacerbating factors: chewing Associated symptoms: Reports ear or mastoid pain; Denies fever(s) Review of Systems General: Reports: 10 or more systems reviewed and unremarkable except in HPI and below Const: Denies: fever(s), chills or fatigue Eyes: Denies: change in vision ENMT: Reports: dental pain, ear or mastoid pain and sinus pain Card: Denies: chest pain, palpitations, swelling of feet/ankles or lightheadedness Resp: Denies: dyspnea, productive cough or wheezing GI: Denies: abdominal pain, nausea, vomiting, diarrhea or constipation : Denies: flank pain, difficulty voiding, dysuria or urinary frequency Musc: Denies: neck pain, back pain or joint pain Skin/Breast: Denies: rash Neuro: Denies: headache(s), numbness in extremities or weakness in extremities PFSH ED PFSH: Medical History Gestational diabetes No significant past medical history Surgical History No significant past surgical history Physical Exam Const: COMMON NORMALS: no acute distress and healthy appearing GENERAL APPEARANCE: cooperative, comfortable and well developed HENMT: COMMON NORMALS: normocephalic, atraumatic, hearing grossly normal bilaterally, external ears normal, EAC's normal, TM's normal bilaterally, Normal external nose present and Normal nasal mucous membranes and turbinates present HEAD & SCALP: normal to inspection, normocephalic and atraumatic FACE & SINUS: normal facial exam and sinuses nontender NOSE: Normal external nose present, Normal nares present, No nasal polyps present and Normal nasal mucous membranes and turbinates present EXTERNAL EAR: Yes external ears normal EXTERNAL AUDITORY CANAL: EAC's normal TYMPANIC MEMBRANE: TM's normal bilaterally MOUTH: Normal oral and palatal mucosa present THROAT: posterior oropharynx normal and tonsils normal OTHER: There is a fractured tooth to the left lower dentition. Surrounding gingival edema in this area is exquisitely tender to palpation. No pulp exposure, fracture appears to be through the dentin. Eye: COMMON NORMALS: EOMs intact bilaterally, conjunctivae normal and normal visual dsouza by confrontation GENERAL EYE: appearance normal, both eyes and all related structures CONJUNCTIVA: Yes conjunctivae normal Neck/C-Spine: COMMON NORMALS: full ROM, no lymphadenopathy, supple and no meningeal signs GENERAL: Yes normal visual inspection Chest: COMMONS NORMALS: normal inspection of the chest Resp: COMMON NORMALS: normal respiratory effort and clear to auscultation bilaterally EFFORT & INSPECTION: Yes able to speak in complete sentences AUSCULTATION: clear to auscultation bilaterally Cardio: COMMON NORMALS: regular rate, regular rhythm, S1 normal heart sound present and S2 normal heart sound present RATE: regular rate RHYTHM: regular rhythm HEART SOUNDS: S1 normal heart sound present, S2 normal heart sound present, no gallops, no murmurs and no rubs Extremity: COMMON NORMALS: normal to inspection, full ROM and capillary refill normal Neuro: MENINGEAL SIGNS: Yes no meningeal signs Skin: COMMON NORMALS: no rashes or lesions noted GENERAL SKIN EXAM: no rashes or lesions noted Course Vital Signs: Vital signs: Vital Signs Temperature 98.5 F 02/24/24 22:40 Pulse Rate 76 02/24/24 22:40 Respiratory Rate 14 02/24/24 22:40 Blood Pressure 152/106 02/24/24 22:40 Pulse Oximetry 97 02/24/24 22:40 Oxygen Delivery Me thod Room Air 02/24/24 22:40 MDM - Dental/Oral Medical Decision Making Patient arrives wanting pain control for her fractured left tooth, of which she is currently has plans to be worked up by oral surgery. She is given a shot of steroid and started on Augmentin here in the emergency department, and will prescribe viscous lidocaine and hydrocodone to be taken at home. She does request Zofran to take as she states hydrocodone makes her stomach upset. Reasons to return discussed and she will follow-up with oral surgery as stated. No radiology studies performed this visit Discharge Plan Discharge Patient Disposition: Home Clinical Impression: Fracture of tooth Qualifiers: Encounter type: subsequent encounter Fracture type: closed Fracture healing: with delayed healing Qualified Code(s): S02.5XXG - Fracture of tooth (traumatic), subsequent encounter for fracture with delayed healing Condition: Stable Prescriptions: New hydrocodone-acetaminophen 7.5-325 mg tablet 1 tab PO Q8H PRN (Reason: pain) Qty: 20 0RF amoxicillin-pot clavulanate 875-125 mg tablet 1 tab PO BID 10 Days Qty: 20 0RF Lidocaine Viscous 2 % solution 1 applic mucous membrane DAILY PRN (Reason: pain) Qty: 100 0RF ondansetron HCl 4 mg tablet 4 mg PO Q8H Qty: 30 0RF No Action ibuprofen 800 mg Tablet 800 mg PO TID Qty: 90 0RF docusate sodium 100 mg Capsule 100 mg PO BID Qty: 60 0RF capsule 1 cap PO DAILY Discharge Orders: Discharge ED (Routine); Ordered 02/24/24 Ordered By: Jeremy Almanzar Referrals: Karla Alves DO [Primary Care Provider] - Patient Instructions: Opioid Safety, Pain Management Activity Restrictions/Additional Instructions: Take antibiotics as prescribed. Pain medications. Viscous lidocaine for relief. Please follow-up with dentist/oral surgeon as discussed. Return with any new or worsening. Coding Level of Care Code ED Professor Of Floriculture for Awa Day
[2024-02-24] MEDS: dexamethasone 10 mg/mL INJ IM (23:28)
[2024-02-24] MEDS: BUPivacaine 0.5% INJ 10 mL INJECTION (23:30)
== END 2024-02-24 23:30 | disposition home or self-care (01) ==
PROVIDERS: Emergency Provider Physician Assistant; PCP Family Medicine
DX: S02.5XXG Fracture of tooth (traumatic), subsequent encounter for fracture with delayed healing (principal); X58.XXXD Exposure to other specified factors, subsequent encounter
CPT/HCPCS: 96372; 99284; J1100; J3490

== ENCOUNTER 2024-02-25 22:29 | Emergency (ER) | payer BC, MEDICAID, SELFPAY ==
[2024-02-25 22:32] VITALS: BP 162/99; PULSE 81; RESP 14; TEMP 36.6; O2SAT 97
--- NOTE | 2024-02-26 00:20 | ED_ITS ---
HPI - Dental/Oral General: Chief complaint: Dental/Oral Stated complaint: tooth pain Time Seen by Provider: 02/26/24 00:13 History of Present Illness: 34-year-old female comes in today for co mplaints of left jaw pain. Patient reports dental infection but was unable to start medications today due to partner forgetting her prescription. Patient appears nontoxic. Patient appears no acute distress. Review of Systems General: Reports: 10 or more systems reviewed and unremarkable except in HPI and below PFSH ED PFSH: Medical History Gestational diabetes No significant past medical history Surgical History No significant past surgical history Physical Exam Const: COMMON NORMALS: alert HENMT: COMMON NORMALS: normocephalic HEAD & SCALP: normocephalic Neck/C-Spine: COMMON NORMALS: full ROM Resp: COMMON NORMALS: normal respiratory effort and clear to auscultation bilaterally AUSCULTATION: clear to auscultation bilaterally Cardio: COMMON NORMALS: regular rate RATE: regular rate Back/Pelvis: COMMON NORMALS: thoracic and lumbar spine normal to inspection Extremity: COMMON NORMALS: normal to inspection Neuro: SENSORIUM/ORIENTATION: Yes alert Skin: COMMON NORMALS: turgor normal GENERAL SKIN EXAM: turgor normal Procedures Nerve Block Nerve Block 1: Local Anesthetic: bupivacaine 0.5% Amount of anesthesia used (mL): 3 Side: left Intraoral Nerve Block: inferior alveolar Procedure Successful: Yes Patient Tolerated Procedure: well Complications: none Course Vital Signs: Vital signs: Vital Signs Temperature 97.8 F 02/25/24 22:32 Pulse Rate 81 02/25/24 22:32 Respiratory Rate 14 02/25/24 22:32 Blood Pressure 162/99 02/25/24 22:32 Pulse Oximetry 97 02/25/24 22:32 MDM - Dental/Oral Medical Decision Making 33-year-old female comes in today for complaints of left jaw pain. Patient has a carious tooth in the left jaw that has been aggravating her more. Patient was here to see if she could get a another injection for a dental block. Differential diagnosis dental caries, dental abscess, dental pain, TMJ syndrome. Patient was given 3 mL of bupivacaine 0.5% for dental nerve block. Patient tolerated well. Patient was sent home with 1 hydrocodone for breakthrough pain until patient can get prescription filled tomorrow. Patient reports understanding of care plan and need for follow-up or return to the ER. No radiology studies performed this visit Discharge Plan Discharge Condition: Stable Prescriptions: No Action ibuprofen 800 mg Tablet 800 mg PO TID Qty: 90 0RF docusate sodium 100 mg Capsule 100 mg PO BID Qty: 60 0RF capsule 1 cap PO DAILY hydrocodone-acetaminophen 7.5-325 mg tablet 1 tab PO Q8H PRN (Reason: pain) Qty: 20 0RF amoxicillin-pot clavulanate 875-125 mg tablet 1 tab PO BID 10 Days Qty: 20 0RF Lidocaine Viscous 2 % solution 1 applic mucous membrane DAILY PRN (Reason: pain) Qty: 100 0RF ondansetron HCl 4 mg tablet 4 mg PO Q8H Qty: 30 0RF Referrals: Karla Alves DO [Primary Care Provider] - Coding Level of Care Code ED Institutional Asset Manager for Kodig Barb
[2024-02-26] MEDS: BUPivacaine 0.5% INJ 10 mL INJECTION (01:13)
== END 2024-02-26 01:48 | disposition home or self-care (01) ==
PROVIDERS: Emergency Provider Nurse Practitioner Family; PCP Family Medicine
DX: K08.89 Other specified disorders of teeth and supporting structures (principal)
CPT/HCPCS: 64400; 99284; J3490

== ENCOUNTER 2024-03-25 11:22 | Emergency (ER) | payer BC, MEDICAID, SELFPAY ==
[2024-03-25 11:34] VITALS: BP 120/74; PULSE 66; RESP 16; TEMP 36.7; O2SAT 99; BMI 33.7
[2024-03-25 12:45] LABS: Basophils % 0.5 %; Eosinophils # 0.1 10^3/uL (0.0-0.8); Eosinophils % 1.3 %; Lymphocytes # 2.8 10^3/uL (0.8-4.8); Lymphocytes % 33.7 %; Mean Corpuscular HGB Conc 33.7 g/dL (30-55); Mean Corpuscular Hemoglobin 29.7 pg (27-33); Mean Corpuscular Volume 88.2 fl (85-98); Mean Platelet Volume 9.3 fL (7.4-10.4); Monocytes # 0.7 10^3/uL (0.2-0.9); Neutrophils # 4.74 10^3/uL (1.8-7.7); Neutrophils % 56.3 %; Nucleated Red Blood Cells % 0 %; Platelet Count 368 10^3/cmm (157-399); Red Blood Count 4.31 10^6/uL (3.85-5.65); Red Cell Distribution Width 13.9 % (12.1-15.1); White Blood Count 8.42 10^3/uL (3.29-11.43)
[2024-03-25 13:03] LABS: HCG, Serum Qual Negative (Negative)
[2024-03-25 13:13] LABS: Alanine Aminotransferase 35 U/L (0-33); Albumin Level 4.7 g/dL (3.5-5.2); Alkaline Phosphatase 67 U/L (35-105); Anion Gap 17.3 (5-19); Aspartate Amino Transferase 19 U/L (0-32); Blood Urea Nitrogen 12 mg/dL (6-20); Calcium 8.9 mg/dL (8.5-10.5); Carbon Dioxide 21 mmol/L (22-29); Chloride 105 mmol/L (98-107); Creatinine Clr Calc Pharmacy 145.6968; Globulin 3.2 g/dL (1.3-4.6); Glomerular Filtration Rate 115.9 mL/min (90-130); Glucose 96 mg/dL (65-115); Lipase 19 U/L (13-60); Osmolality Calculated 288 mOsm/kg (285-295); Potassium 4.3 mmol/L (3.5-5.1); Sodium 139 mmol/L (136-145); Total Bilirubin 0.5 mg/dL (0.15-1.2); Total Protein 7.9 g/dL (6.6-8.7)
[2024-03-25 14:12] VITALS: BP 123/81; PULSE 68; RESP 18; O2SAT 99
--- NOTE | 2024-03-25 14:19 | ED_ITS ---
HPI - Dizziness 2 General: Chief Complaint: Dizziness Stated Complaint: dizzy, light headed,n,v Time Seen by Provider: 03/25/24 13:51 Source: patient Mode of arrival: ambulatory Limitations: no limitations History of Present Illness: HPI Narrative: 33-year-old female states that over the last 2 days she has been having severe vertigo. States its much worse with movement improved with rest she had nausea and vomiting as well she states that she had vertigo in the past and Antivert usually helps but she did not have any. She denies any headache denies any fever Associated symptoms: Reports nausea and vomiting; Denies chest pain, chills or headache(s) Review of Systems 2 Const: Denies: fever(s), chills, body aches or change in appetite ENMT: Denies: throat pain or dental pain Card: Denies: chest pain Resp: Denies: dyspnea GI: Reports: nausea and vomiting; Denies: abdominal pain or diarrhea Musc: Denies: neck pain or back pain Skin/Breast: Denies: rash Neuro: Reports: dizziness; Denies: headache(s) PFSH ED 2 PFSH: Medical History Gestational diabetes No significant past medical history Surgical History No significant past surgical history Physical Exam 2 Const: COMMON NORMALS: no acute distress, patient oriented x3 and healthy appearing HENMT: COMMON NORMALS: normocephalic, atraumatic and TM's normal bilaterally HEAD & SCALP: normocephalic and atraumatic TYMPANIC MEMBRANE: TM's normal bilaterally Eye: COMMON NORMALS: Equal, round and reactive pupils present and EOMs intact bilaterally PUPIL: Yes Equal, round and reactive pupils present OTHER: Nystagmus noted when looking to the right Neck/C-Spine: COMMON NORMALS: full ROM and supple Chest: COMMONS NORMALS: normal inspection of the chest Resp: COMMON NORMALS: normal respiratory effort Cardio: COMMON NORMALS: regular rate, regular rhythm and No murmurs present (Cardio) RATE: regular rate RHYTHM: regular rhythm Extremity: COMMON NORMALS: normal to inspection and full ROM Neuro: COMMON NORMALS: patient oriented x3, moves all extremities and no focal motor deficits Psych: COMMON NORMALS: mental status grossly normal, Normal thought process present and cooperative THOUGHT PROCESS: Normal thought process present Skin: COMMON NORMALS: no rashes or lesions noted and no wounds GENERAL SKIN EXAM: no rashes or lesions noted Course 2 Vital Signs: Vital signs: Vital Signs Temperature 98.0 F 03/25/24 11:34 Pulse Rate 63 03/25/24 15:15 Respiratory Rate 18 03/25/24 14:12 Blood Pressure 122/80 03/25/24 15:15 Pulse Oximetry 98 03/25/24 15:15 Oxygen Delivery Me thod Room Air 03/25/24 15:15 MDM - Dizziness Medical Decision Making Patient presents for vertigo is likely peripheral she feels much improved after fluids Zofran and meclizine she is able to ambulate without any difficulty no signs of a posterior stroke she stable for discharge follow-up with PCP return if worsening. Medical Records I reviewed the patient's medical records. Lab Data I reviewed the patient's lab results. 03/25/24 12:23 03/25/24 12:23 Laboratory Results WBC 8.42 10^3/uL (3.29-11.43) 03/25/24 12:23 RBC 4.31 10^6/uL (3.85-5.65) 03/25/24 12:23 Hgb 12.80 g/dL (11.27-16.99) 03/25/24 12:23 Hct 38.0 % (36-47) 03/25/24 12:23 MCV 88.2 fl (85-98) 03/25/24 12:23 MCH 29.7 pg (27-33) 03/25/24 12:23 MCHC 33.7 g/dL (30-55) 03/25/24 12:23 RDW 13.9 % (12.1-15.1) 03/25/24 12:23 Plt Count 368 10^3/cmm (157-399) 03/25/24 12:23 MPV 9.3 fL (7.4-10.4) 03/25/24 12:23 Neut % (Auto) 56.3 % 03/25/24 12:23 Lymph % (Auto) 33.7 % 03/25/24 12:23 Bullock % (Auto) 8.0 % 03/25/24 12:23 Eos % (Auto) 1.3 % 03/25/24 12:23 Baso % (Auto) 0.5 % 03/25/24 12:23 Neut # (Auto) 4.74 10^3/uL (1.8-7.7) 03/25/24 12:23 Lymph # (Auto) 2.8 10^3/uL (0.8-4.8) 03/25/24 12:23 Bullock # (Auto) 0.7 10^3/uL (0.2-0.9) 03/25/24 12:23 Eos # (Auto) 0.1 10^3/uL (0.0-0.8) 03/25/24 12:23 Baso # (Auto) 0.0 10^3/uL (0.0-0.1) 03/25/24 12:23 Nucleated RBC % (auto) 0 % 03/25/24 12:23 Nucleated RBCs # 0.0 /100WBC 03/25/24 12:23 Sodium 139 mmol/L (136-145) 03/25/24 12:23 Potassium 4.3 mmol/L (3.5-5.1) 03/25/24 12:23 Chloride 105 mmol/L (98-107) 03/25/24 12:23 Carbon Dioxide 21 mmol/L (22-29) L 03/25/24 12:23 Anion Gap 17.3 (5-19) 03/25/24 12:23 BUN 12 mg/dL (6-20) 03/25/24 12:23 Creatinine 0.6 mg/dL (0.5-0.9) 03/25/24 12:23 GFR Calculation 115.9 mL/min (90-130) 03/25/24 12:23 Glucose 96 mg/dL (65-115) 03/25/24 12:23 Calculated Osmolality 288 mOsm/kg (285-295) 03/25/24 12:23 Calcium 8.9 mg/dL (8.5-10.5) 03/25/24 12:23 Total Bilirubin 0.5 mg/dL (0.15-1.2) 03/25/24 12:23 AST 19 U/L (0-32) 03/25/24 12:23 ALT 35 U/L (0-33) H 03/25/24 12:23 Alkaline Phosphatase 67 U/L (35-105) 03/25/24 12:23 Total Protein 7.9 g/dL (6.6-8.7) 03/25/24 12:23 Albumin 4.7 g/dL (3.5-5.2) 03/25/24 12:23 Globulin 3.2 g/dL (1.3-4.6) 03/25/24 12:23 Lipase 19 U/L (13-60) 03/25/24 12:23 HCG, Qual Negative (Negative) 03/25/24 12:23 Urine Color Yellow (Yellow) 03/25/24 15:03 Urine Appearance Slightly cloudy (CLEAR) 03/25/24 15:03 Urine pH 5 (5-7) 03/25/24 15:03 Ur Specific [place] 1.020 (1.005-1.030) 03/25/24 15:03 Urine Protein Trace (Negative) 03/25/24 15:03 Urine Glucose (UA) Norm (Normal) 03/25/24 15:03 Urine Ketones Negative (Negative) 03/25/24 15:03 Urine Blood 2+ (Negative) H 03/25/24 15:03 Urine Nitrate Negative (Negative) 03/25/24 15:03 Urine Bilirubin Neg (Negative) 03/25/24 15:03 Urine Urobilinogen Norm mg/dL (Negative) 03/25/24 15:03 Ur Leukocyte Esterase 2+ (Negative) H 03/25/24 15:03 Urine RBC 5-10 /hpf (0-2) H 03/25/24 15:03 Urine WBC 80-100 /hpf (0-5) H 03/25/24 15:03 Ur Squamous Epith Cells 5-10 /hpf (0-5) H 03/25/24 15:03 Amorphous Sediment Not Reportable 03/25/24 15:03 Urine Bacteria 1+ /hpf (NONE) H 03/25/24 15:03 No radiology studies performed this visit Discharge Plan Discharge Patient Disposition: Home Clinical Impression: Vertigo Condition: Stable Prescriptions: New ondansetron 4 mg tablet,disintegrating 4 mg PO Q6H PRN (Reason: nausea and vomiting) Qty: 14 0RF meclizine 50 mg tablet 50 mg PO BID PRN (Reason: dizziness) Qty: 20 0RF No Action medroxyprogesterone 150 mg/mL syringe 150 mg IM .Q90D escitalopram oxalate 5 mg tablet 5 mg PO DAILY 28 mg iron- 800 mcg Tablet 1 tab PO DAILY ondansetron HCl 4 mg tablet 4 mg PO Q8H PRN (Reason: Nausea) Discharge Orders: Discharge ED (Routine); Ordered 03/25/24 Ordered By: Gabriella Euceda Referrals: Karla Alves DO [Primary Care Provider] - Discharge Diet: Advance as tolerated Discharge Activity: Resume usual activity Patient Instructions: Vertigo (ED) Coding Level of Care Code ED Circuit Design Engineer for Awa Day
[2024-03-25 15:15] VITALS: BP 122/80; PULSE 63; O2SAT 98
[2024-03-25 15:21] LABS: Urine Color Yellow (Yellow)
[2024-03-25] MEDS: sodium chloride 0.9% 1,000 ML 999 ML IV (15:21)
[2024-03-25 15:22] LABS: Add Urine Microscopic? YES; Bacteria Urine 1+ /hpf; Bilirubin Urine Neg (Negative); Blood Urine 2+ (Negative); Glucose Urine UA Norm (Normal); Ketones Urine Negative (Negative); Leukocyte Esterase Urine 2+ (Negative); Nitrate Urine Negative (Negative); Protein Urine Trace (Negative); Urine Appearance Slightly Cloudy (CLEAR); Urobilinogen Urine Norm (Negative); WBC Urine 80-100 /hpf (0-5); pH Urine 5 (5-7)
[2024-03-25 15:23] LABS: Add Urine Culture? Yes
[2024-03-25] MEDS: meclizine 25 mg tablet 50 MG PO ×2 (15:33→16:42)
[2024-03-25] MEDS: ondansetron 2 mg/ML SDV 2 mL 4 MG IVP (15:34)
[2024-03-25 16:47] VITALS: BP 122/80; PULSE 63; RESP 18; TEMP 36.7; O2SAT 98
== END 2024-03-25 16:53 | disposition home or self-care (01) ==
PROVIDERS: Emergency Provider Emergency Medicine; PCP Family Medicine
DX: R42 Dizziness and giddiness (principal)
CPT/HCPCS: 36415; 80053; 81001; 83690; 84703; 85025; 87077; 87086; 87186; 96361; 96374; 99284; J2405; J7030; J8597

== ENCOUNTER 2024-05-01 14:03 | Emergency (ER) | payer BC, MEDICAID, SELFPAY ==
[2024-05-01 14:16] VITALS: BP 127/90; PULSE 100; RESP 18; TEMP 36.7; O2SAT 98
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
[2024-05-01] MEDS: ondansetron 4 MG Tablet PO (15:30)
[2024-05-01] MEDS: orphenadrine 30 mg/mL Inj 2 mL 60 MG IM (15:30)
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
[2024-05-01 15:53] VITALS: BP 125/86; PULSE 91; RESP 16; TEMP 36.7; O2SAT 99
== END 2024-05-01 15:49 | disposition home or self-care (01) ==
PROVIDERS: Emergency Provider Physician Assistant; PCP Family Medicine
DX: Z04.1 Encounter for examination and observation following transport accident (principal); M62.838 Other muscle spasm; F17.290 Nicotine dependence, other tobacco product, uncomplicated; V89.2XXA Person injured in unspecified motor-vehicle accident, traffic, initial encounter
CPT/HCPCS: 72040; 73030; 96372; 99284; J2360; Q0162

== ENCOUNTER 2024-09-02 14:34 | Outpatient (CLI) | payer BC, MEDICAID, SELFPAY ==
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
== END 2024-09-02 14:35 | disposition home or self-care (01) ==
PROVIDERS: PCP Family Medicine; Visit Provider Family Medicine
DX: M79.10 Myalgia, unspecified site (principal); N64.59 Other signs and symptoms in breast
CPT/HCPCS: 72050; 72072

== ENCOUNTER 2025-04-27 15:52 | Emergency (ER) | payer BC, MEDICAID, SELFPAY ==
--- OUTSIDE RECORDS SUMMARY | 2021-09-09 19:00 | XMS_ITS | Continuity of Care Document ---
Author Organization [facility] Address [address] [place] [address] Phone Care Team Providers Care Research Food Technologist Name Role Phone Anatoliy Frederick Unavailable Unavailable Procedures Procedure Date EMERGENCY DEPT VISIT Advance Directives Directive Yes / No Effective Date File Name No Information Encounters Encounter Description Practice Location Reason(s) For Visit Diagnoses Date Provider Providers Copied on Encounter EMERGENCY DEPT VISIT [facility], [address] [facility], [place], [id number], [place] tel:[phone] [facility] No Information [facility] [address] [facility], [place], [id number], [place]. tel:[phone] Family History Family Member Type Diagnosis Age At Onset No Information Payers Payer name Insurance type Covered green party ID Authoriza tion(s) No Information Social History Type Description Quantity Date Captured Comments Sex Female Smoking Status No Information Chief Complaint And Reason For Visit No Information Reason For Referral Reason For Referral No Information History Of Present Illness Encounter Date Complaint History Of Prese nt Illness No Information Functional Status Date Functional Assessmen t No Information Instructions Date Instruction Additional Infor mation No Information Assessments Type Assessment Date No Information Patient Care Teams Name Effective Dates (start - stop) Status Members No Information
--- OUTSIDE RECORDS SUMMARY | 2024-03-01 09:00 | XMS_ITS | Continuity of Care Document ---
Author Organization [facility] Address [address] [id number] [address] Phone Care Team Providers Care Mix Crusher Operator Name Role Phone Wale Carr DMD Unavailable Unavailable Allergies, Adverse Reactions, Alerts Substance Reaction Status Criticality prednisone Active No Information tramadol Active No Information Medications Medication Instructions Dosage Effective Dates (start - stop) Status Comments ibuprofen 800 mg tablet take 1 tablet by oral route 3 times every day with food 800 MG - Active amoxicillin 250 mg capsule take 1 capsule by oral route every 8 hours 250 MG - Active Procedures Procedure Date Limited Oral Evaluation Problem Focused Limited Oral Evaluation Problem Focused Intraoral Periapical First Film Extraction, Erupted Tooth Or Exposed [place]e t ([employer]lev[employer] Advance Directives Directive Yes / No Effective Date File Name No Information Encounters Encounter Description Practice Location Reason(s) For Visit Diagnoses Date Provider Providers Copied on Encounter [facility], [id number], [id number], [place] tel:[phone] [facility] Encounter for dental exam and cleaning w/o abnormal findings [facility]. [address] [place], [address], [place]. tel:[phone] Referring Provider: Wale Carr, [address] [place], [address]. tel:[phone] Family History Family Member Type Diagnosis Age At Onset No Information Payers Payer name Insurance type Covered green party ID Ave tatum(valdo Rossi [id number] Social History Type Description Quantity Date Captured Comments Alcohol Use Details Unknown Caffeine Use Details Unknown Tobacco Use Status No Information Smoking Status No Information Sex Female Sexual Orientation Heterosexual Gender Identity Female Chief Complaint And Reason For Visit No [...]
[2025-04-27 15:58] VITALS: BP 124/84; PULSE 90; RESP 16; TEMP 36.6; O2SAT 98
--- OUTSIDE RECORDS SUMMARY | 2025-04-27 15:58 | XMS_ITS | Clinical Summary ---
Author Organization Anna Simmons Address [address] [facility] [address] [place] [address] Phone Care Team Providers Care Tool Filer Name Role Phone Unavailable Primary Care Provider Unavailabl e Allergies Active Allergy Reactions Criticality Noted Date Comments Prednisone Rash Low 03/04/2023 Tramadol Seizure High 03/04/2023 Medications No known medications Social History Tobacco Use Types Packs/Day Years Used Date Smoking Tobacco: Never Smokeless Tobacco: Never Tobacco Cessation:Counseling Given: Not Answered Alcohol Use Standard Drinks/Week Comments Yes 0 (1 standard drink = 0.6 oz pur e alcohol) Feeling Safe Answer Date Recorded Are you in a relationship wi th someone who hurts you emotionally and/or physically? No 03/04/2023 Comments No Sex and Gender Information Value Date Recorded Sex Assigned at Not on file Legal Sex Female 9:43 PM CDT Gender Identity Not on file Sexual Orientation Not on file Last Filed Vital Signs Vital Sign Reading Time Taken Comments Blood Pressure 117/78 03/04/2023 10:53 PM CDT Pulse 72 03/04/2023 10:53 PM CDT Temperature 36.2 C (97.2 F) 03/04/2023 10:53 PM CDT Respiratory Rate 18 03/04/2023 10:5 3 PM CDT Oxygen Saturation 100% 03/04/2023 10: 53 PM CDT Inhaled Oxygen Concentration - - Weight 76.6 kg (168 lb 12.8 oz) 03/04/2023 9:53 PM CDT Height 162.6 cm (5' 4 ) 03/04/2023 9:53 PM CDT Body Mass Index 28.97 03/04/2023 9:53 PM CDT Plan of Treatment Health Maintenance Due Date Last Done Comments HPV VACCINES (1 - 3-dose series) 2006 DTAP/TDAP/TD VACCINES (1 - Tdap) 2010 HEPATITIS B VACCINES (1 of 3 - 19+ 3-dose series) 01/2010 HPV/Cotest (21-29) 2012 CERVICAL CANCER SCREENING 2021 HPV/Cotest (30-65) 2021 PAP SMEAR 2021 INFLUENZA VACCINE (#1) 2025 Insurance MEDICAID [place]
--- NOTE | 2025-04-27 16:17 | ED_ITS ---
HPI - Extremity Problem General: Chief complaint: Extremity Injury, Lower Stated complaint: R foot Swollen Painful Time Seen by Provider: 04/27/25 15:58 Source: patient Mode of arrival: ambulatory Limitations: no limitations History of Present Illness: Patient is a 34-year-old female presents to ED today with a complaint of pain and edema to the dorsum of her right foot. Patient states she has been having pain to the dorsum of her right foot for several weeks. Pain does not seem to be improving and feels like over the past several days it has worsened and now she feels like the top of her foot is slightly edematous. She states pain is worse with extension of her great toe. She does feel like she can palpate crunching to the top of her foot when she wiggles her toes. She has not noticed any redness or warmth. No injury points for infection. MD Complaint: extremity pain and extremity swelling Onset (ago): day(s) Pain Consistency: constant Location: right and lower extremity Radiation: none Relieving factors: nothing Exacerbating factors: weight bearing and walking Associated symptoms: Reports no associated symptoms Related Data Previous Rx's ?Medication ?Instructions ?Recorded meclizine 50 mg tablet (Antivert) 50 mg PO DAILY PRN d izziness #14 05/01/24 tabs Allergies Allergy/AdvReac Type Severity Reaction Status Date / Time hydrocodone Allergy ADR-Nausea Verified 02/17/25 11:30 oxycodone (From Percocet) Allergy ADR-Nausea Verified 02/17/25 11:30 prednisone Allergy ALGY-Anaphy Verified 02/17/25 11:30 laxis tramadol Allergy ADR-Seizure Verified 02/17/25 11:30 Review of Systems Musc: Reports: extremity pain (R foot) and extremity swelling (R foot) Skin/Breast: Denies: erythema Neuro: Denies: numbness in extremities, sensory changes or difficulty walking PFS ED PFSH: Medical History Gestational diabetes No significant past medical history Surgical History No significant past surgical history Family History Father Diabetes Hypertension Stroke Grandmother Ovarian cancer Denies family history of Colon cancer Prostate cancer Heart disease Breast cancer Uterine cancer Thyroid disease Social History Smoking and tobacco/nicotine status: current every day tobacco/nicotine user (vape use) Physical Exam Const: COMMON NORMALS: no acute distress, average body habitus, no limitations, healthy appearing, alert and well nourished Extremity: RIGHT LOWER EXTREMITY: Yes foot & digits (TTP over R dorsal midf oot; maybe mild edema; no erythema/warmth) Right foot and digits: Yes ROM (normal but pain with toe extension), Yes neurovascular exam (normal) and Yes tendon exam (normal but does have some tenderness over dorsal tendons) Neuro: COMMON NORMALS: moves all extremities, no focal motor deficits and no sensory deficits noted SENSORIUM/ORIENTATION: Yes alert Course Vital Signs: Vital signs: Vital Signs Temperature 97.9 F 04/27/25 15:58 Pulse Rate 90 04/27/25 15:58 Respiratory Rate 16 04/27/25 15:58 Blood Pressure 124/84 04/27/25 15:58 Pulse Oximetry 98 04/27/25 15:58 Oxygen Delivery Me thod Room Air 04/27/25 15:58 MDM - Extremity (Nontraumatic) Medical Decision Making XR unremarkable. DDx extensor tendinopathy, dorsal foot ganglia although I do not obviously appreciate a nodule, among others. She chronically wears flip flops and other poor orthotic wear. I will have her follow up with podiatry for further assessment. Will have her MEGAN wrap, ice, elevate, NSAIDS, supportive shoes in the meantime. Medical Records I reviewed the patient's medical records. XR interpretation done by ED provider, pending radiology final review Discharge Plan Discharge Patient Disposition: Home Clinical Impression: Acute pain of right foot Condition: Stable Prescriptions: No Action Antivert 50 mg tablet 50 mg PO DAILY PRN (Reason: dizziness) Qty: 14 0RF Discharge Orders: Discharge ED (Routine); Ordered 04/27/25 Ordered By: Lakshmi Reyes Referrals: Karla Alves DO [Primary Care Provider, REMELT PAN TANK OPERATOR] Patient Instructions: Patient Portal & Ava Instructions Activity Restrictions/Additional Instructions: As we discussed, we will have case management reach out to you to set you up with an appointment with [facility] podiatry for further diagnostic evaluation of your right foot discomfort. In the meantime we discussed compression with the MEGAN bandage, ice, elevation, anti-inflammatories, and supportive shoe wear. Print Language: Cameroonian Coding Level of Care Code ED Prn Physical Therapist for Awa Day
--- NOTE | 2025-04-27 16:17 | XRR_ITS ---
PROCEDURE INFORMATION: Exam: XR Right Foot Exam date and time: 04/27/2025 4:18 PM Age: 34 years old Clinical indication: Pain; Foot; Right; Additional info: Pain/edema TECHNIQUE: Imaging protocol: Radiologic exam of the right foot. Views: 3 or more views. COMPARISON: No relevant prior studies available. FINDINGS: Bones/joints: Normal. Soft tissues: Mild soft tissue swelling of the dorsum of the foot. XR/XR foot RT min 3V* [id number] IMPRESSION: 1. No acute fractures or malalignment. 2. Mild soft tissue swelling of the dorsum of the foot.
[2025-04-27 16:45] VITALS: BP 139/79; PULSE 77; RESP 18; O2SAT 98
--- NOTE | 2025-04-29 06:21 | DCPLANNER ---
message sent to Podiatry for follow up-XR unremarkable. DDx extensor tendinopathy, dorsal foot ganglia although I do not obviously appreciate a nodule, among others. She chronically wears flip flops and other poor orthotic wear. I will have her follow up with podiatry for further assessment. Will have her MEGAN wrap, ice, elevate, NSAIDS, supportive shoes in the meantime.
== END 2025-04-27 16:46 | disposition home or self-care (01) ==
PROVIDERS: Emergency Provider Physician Assistant; PCP Family Medicine
DX: M79.671 Pain in right foot (principal); F17.290 Nicotine dependence, other tobacco product, uncomplicated
CPT/HCPCS: 73630; 99283

== ENCOUNTER 2025-05-15 01:52 | Emergency (ER) | payer BC, MEDICAID, SELFPAY ==
--- OUTSIDE RECORDS SUMMARY | 2025-05-15 01:56 | XMS_ITS | Clinical Summary ---
Author Organization Anna Simmons Address [address] [address] [place] [address] Phone Care Team Providers Care Aitchbone Breaker Name Role Phone Unavailable Primary Care Provider [...] Health Maintenance Due Date Last Done Comments DTAP/TDAP/TD VACCINES (1 - Tdap) 2010 HEPATITIS B VACCINES (1 of 3 - 19+ 3-dose series) 01/2010 HPV/Cotest (21-29) 2012 HPV VACCINES (1 - 3-dose SCDM series) 2018 CERVICAL CANCER SCREENING 2021 HPV/Cotest (30-65) 2021 PAP SMEAR 2021 INFLUENZA VACCINE (#1) 2025 Insurance MEDICAID [place]
[2025-05-15 02:03] VITALS: BP 125/76; PULSE 87; RESP 18; TEMP 36.6; O2SAT 98; BMI 36.8
[2025-05-15 02:22] LABS: Hematocrit 36.5 % (36-47); Hemoglobin 12.50 g/dL (11.27-16.99); Mean Corpuscular HGB Conc 34.2 g/dL (30-55); Mean Corpuscular Hemoglobin 31.8 pg (27-33); Mean Corpuscular Volume 92.9 fl (85-98); Nucleated Red Blood Cells % 0 %; Platelet Count 297 10^3/cmm (157-399); Red Blood Count 3.93 10^6/uL (3.85-5.65); White Blood Count 8.83 10^3/uL (3.29-11.43)
[2025-05-15 02:40] LABS: Alanine Aminotransferase 56 U/L (0-33); Albumin Level 4.2 g/dL (3.5-5.2); Alkaline Phosphatase 65 U/L (35-105); Anion Gap 17.9 (5-19); Aspartate Amino Transferase 44 U/L (0-32); Blood Urea Nitrogen 10 mg/dL (6-20); Calcium 9.0 mg/dL (8.5-10.5); Carbon Dioxide 22 mmol/L (22-29); Chloride 103 mmol/L (98-107); Creatinine Clr Calc Pharmacy 129.6196; Globulin 3.0 g/dL (1.3-4.6); Glucose 103 mg/dL (65-115); Osmolality Calculated 287 mOsm/kg (285-295); Potassium 3.9 mmol/L (3.5-5.1); Sodium 139 mmol/L (136-145); Total Protein 7.2 g/dL (6.6-8.7)
[2025-05-15 02:53] LABS: HCG, Serum Qual Negative (Negative)
[2025-05-15 02:53] LABS: Glucose Urine UA Negative (Normal); Nitrate Urine Negative (Negative); Specific Gravity, Urine 1.007 (1.005-1.030)
[2025-05-15 02:58] LABS: Add Urine Microscopic? YES
--- NOTE | 2025-05-15 03:05 | ED_ITS ---
HPI - Abdominal Pain 2 General: Chief Complaint: Abdominal Pain Stated Complaint: sudden low abd pain Time Seen by Provider: 05/15/25 02:56 History of Present Illness: Patient is a 34-year-old female who presents with acute onset of pelvic pain that began approximately 1.5 hours prior to arrival. She describes the pain as shooting down into her vagina and radiating upward across her lower abdomen. It started while having sexual intercourse. The pain progressively worsened to the point where she was buckled over, prompting her partner to call an ambulance. Due to delayed EMS response, they opted to present to the ED via private vehicle. The patient denies vaginal bleeding or discharge, dysuria, changes in urine color, or vomiting. She reports that positioning her leg in a certain way provides some relief from the pain. The pain is localized primarily to the right lower quadrant. Patient recently completed a course of antibiotics for an ear infection. Related Data Previous Rx's ?Medication ?Instructions ?Recorded meclizine 50 mg tablet (Antivert) 50 mg PO DAILY PRN d izziness #14 05/01/24 tabs albuterol sulfate 90 mcg/actuation 2 puff inhalation Q 4H PRN 05/05/25 aerosol inhaler (Ventolin HFA) shortness of breath or wheezing #8.5 grams amoxicillin 875 mg-potassium 1 tab PO BID 7 days #14 t abs 05/05/25 clavulanate 125 mg tablet fluconazole 150 mg tablet 150 mg PO Q3D 2 doses #2 tab s 05/05/25 ketorolac 10 mg tablet 10 mg PO TID PRN pain #10 ta bs 05/15/25 Allergies Allergy/AdvReac Type Severity Reaction Status Date / Time hydrocodone Allergy ADR-Nausea Verified 05/05/25 13:34 oxycodone (From Percocet) Allergy ADR-Nausea Verified 05/05/25 13:34 prednisone Allergy ALGY-Anaphy Verified 05/05/25 13:34 laxis tramadol Allergy ADR-Seizure Verified 05/05/25 13:34 [facility] ED 2 PFSH: Medical History Gestational diabetes No significant past medical history Surgical History No significant past surgical history Family History Father Diabetes Hypertension Stroke Grandmother Ovarian cancer Denies family history of Colon cancer Prostate cancer Heart disease Breast cancer Uterine cancer Thyroid disease Social History Smoking and tobacco/nicotine status: never used tobacco/nicotine Physical Exam 2 Const: COMMON NORMALS: no acute distress GENERAL APPEARANCE: cooperative; not ill appearing and not frail appearing HENMT: COMMON NORMALS: normocephalic, atraumatic and Normal external nose present HEAD & SCALP: normocephalic and atraumatic FACE & SINUS: normal facial exam and face symmetric NOSE: Normal external nose present Eye: COMMON NORMALS: Equal, round and reactive pupils present and EOMs intact bilaterally PUPIL: Yes Equal, round and reactive pupils present Neck/C-Spine: GENERAL: Yes trachea midline Chest: CHEST: Yes Symmetrical chest wall rise Resp: COMMON NORMALS: normal respiratory effort, No retractions, No use of accessory muscles and clear to auscultation bilaterally AUSCULTATION: clear to auscultation bilaterally Cardio: COMMON NORMALS: regular rate and regular rhythm RATE: regular rate RHYTHM: regular rhythm GI: COMMON NORMALS: Normal to inspection, nondistended, normoactive bowel sounds present PALPATION: Yes Tenderness to palpation present (GI) (Suprapubic) Details: RLQ and Yes Guarding due to palpation present (GI) : EXTERNAL FEMALE EXAM: Yes normal appearance of the urethra and No erythema SPECULUM EXAM - VAGINA: No erythematous, No laceration and No vaginal bleeding SPECULUM EXAM - CERVIX: Yes Cervical os closed and No Cervical bleeding OB/EXTERNAL & SPECULUM: No vaginal bleeding Extremity: COMMON NORMALS: no pedal edema Neuro: BRADY COMA SCALE: document GCS findings Samson coma scale eye opening: Spontaneous Samson coma scale verbal response: Orientated Brady coma scale motor response: Obey commands Brady coma scale total score: 15 S ENSORY EXAM: Yes extremities (intact) Psych: COMMON NORMALS: speech normal SPEECH: Yes normal speech Skin: COMMON NORMALS: no rashes or lesions noted GENERAL SKIN EXAM: no rashes or lesions noted Course 2 Vital Signs: Vital signs: Vital Signs Temperature 98 F 05/15/25 02:03 Pulse Rate 77 05/15/25 04:32 Respiratory Rate 17 05/15/25 04:32 Blood Pressure 109/77 05/15/25 04:32 Pulse Oximetry 98 05/15/25 04:32 MDM - Abdominal Pain Medical Decision Making CBC BMP liver enzymes and urinalysis are not remarkable. CT is pending. She has significant pain with any movement whatsoever. CT shows a left adnexal cyst measuring 4.6 mm. She is nontender on the side. There is no evidence of appendicitis. No acute findings otherwise. Pain is improved. She will be discharged. To return for worsening symptoms despite treatment. Lab Data 05/15/25 02:13 05/15/25 02:13 Labs/Radiology: Radiology Impressions Abdomen/Pelvis CT 05/15/25 03:37 IMPRESSION: 1. Left adnexal cyst measures 4.6 mm. Pelvic ultrasound should be considered for better evaluation. 2. No evidence of acute appendicitis. Normal caliber of the appendix. There is a punctate 2 mm appendicolith at the tail of the pancreas which is incidentally noted. Laboratory Results WBC 8.83 10^3/uL (3.29-11.43) 05/15/25 02:13 RBC 3.93 10^6/uL (3.85-5.65) 05/15/25 02:13 Hgb 12.50 g/dL (11.27-16.99) 05/15/25 02:13 Hct 36.5 % (36-47) 05/15/25 02:13 MCV 92.9 fl (85-98) 05/15/25 02:13 MCH 31.8 pg (27-33) 05/15/25 02:13 MCHC 34.2 g/dL (30-55) 05/15/25 02:13 RDW 13.1 % (12.1-15.1) 05/15/25 02:13 Plt Count 297 10^3/cmm (157-399) 05/15/25 02:13 MPV 9.7 fL (7.4-10.4) 05/15/25 02:13 Neut % (Auto) 48.7 % 05/15/25 02:13 Lymph % (Auto) 40.3 % 05/15/25 02:13 [place] % (Auto) 8.5 % 05/15/25 02:13 Eos % (Auto) 1.6 % 05/15/25 02:13 Baso % (Auto) 0.6 % 05/15/25 02:13 Neut # (Auto) 4.30 10^3/uL (1.8-7.7) 05/15/25 02:13 Lymph # (Auto) 3.6 10^3/uL (0.8-4.8) 05/15/25 02:13 [place] # (Auto) 0.8 10^3/uL (0.2-0.9) 05/15/25 02:13 Eos # (Auto) 0.1 10^3/uL (0.0-0.8) 05/15/25 02:13 Baso # (Auto) 0.1 10^3/uL (0.0-0.1) 05/15/25 02:13 Nucleated RBC % (auto) 0 % 05/15/25 02:13 Nucleated RBCs # 0.0 /100WBC 05/15/25 02:13 Sodium 139 mmol/L (136-145) 05/15/25 02:13 Potassium 3.9 mmol/L (3.5-5.1) 05/15/25 02:13 Chloride 103 mmol/L (98-107) 05/15/25 02:13 Carbon Dioxide 22 mmol/L (22-29) 05/15/25 02:13 Anion Gap 17.9 (5-19) 05/15/25 02:13 BUN 10 mg/dL (6-20) 05/15/25 02:13 Creatinine 0.7 mg/dL (0.5-0.9) 05/15/25 02:13 GFR Calculation 96.4 mL/min (90-130) 05/15/25 02:13 Glucose 103 mg/dL (65-115) 05/15/25 02:13 Calculated Osmolality 287 mOsm/kg (285-295) 05/15/25 02:13 Calcium 9.0 mg/dL (8.5-10.5) 05/15/25 02:13 Total Bilirubin 0.2 mg/dL (0.15-1.2) 05/15/25 02:13 AST 44 U/L (0-32) H 05/15/25 02:13 ALT 56 U/L (0-33) H 05/15/25 02:13 Alkaline Phosphatase 65 U/L (35-105) 05/15/25 02:13 Total Protein 7.2 g/dL (6.6-8.7) 05/15/25 02:13 Albumin 4.2 g/dL (3.5-5.2) 05/15/25 02:13 Globulin 3.0 g/dL (1.3-4.6) 05/15/25 02:13 HCG, Qual Negative (Negative) 05/15/25 02:30 Urine Color Yellow (Yellow) 05/15/25 02:30 Urine Appearance Clear (CLEAR) 05/15/25 02:30 Urine pH 7.5 (5-7) 05/15/25 02:30 Ur Specific [place] 1.007 (1.005-1.030) 05/15/25 02:30 Urine Protein Negative (Negative) 05/15/25 02:30 Urine Glucose (UA) Negative (Normal) 05/15/25 02:30 Urine Ketones Negative (Negative) 05/15/25 02:30 Urine Blood Negative (Negative) 05/15/25 02:30 Urine Nitrate Negative (Negative) 05/15/25 02:30 Urine Bilirubin Negative (Negative) 05/15/25 02:30 Urine Urobilinogen 0.2 mg/dL (Negative) 05/15/25 02:30 Ur Leukocyte Esterase Negative (Negative) 05/15/25 02:30 Urine RBC 0-2 /hpf (0-2) 05/15/25 02:30 Urine WBC 0-5 /hpf (0-5) 05/15/25 02:30 Ur Squamous Epith Cells 0-5 /hpf (0-5) 05/15/25 02:30 Amorphous Sediment Not Reportable 05/15/25 02:30 Urine Bacteria None seen /hpf (NONE) 05/15/25 02:30 Hyaline Casts 0.40 /lpf 05/15/25 02:30 All radiology interpretation(s) finalized by discharge Discharge Plan Discharge Patient Disposition: Home Clinical Impression: Pelvic pain in female Condition: Stable Prescriptions: New ketorolac 10 mg tablet 10 mg PO TID PRN (Reason: pain) Qty: 10 0RF No Action fluconazole 150 mg tablet 150 mg PO Q3D Qty: 2 0RF Rx Instructions: may repeat second dose 72 hrs after first dose if symptoms persist albuterol sulfate [Ventolin HFA] 90 mcg/actuation HFA aerosol inhaler 2 puff inhalation Q4H PRN (Reason: shortness of breath or wheezing) Qty: 8.5 0RF amoxicillin-pot clavulanate 875-125 mg tablet 1 tab PO BID 7 Days Qty: 14 0RF Antivert 50 mg tablet 50 mg PO DAILY PRN (Reason: dizziness) Qty: 14 0RF Discharge Orders: Discharge ED (Routine); Ordered 05/15/25 Ordered By: Boby Brandon Referrals: Karla Alves DO [Primary Care Provider, CONTRACT TECHNICAL WRITER] - 1-3 days Patient Instructions: Opioid Safety, Pain Management, Patient Portal & Ava Instructions Activity Restrictions/Additional Instructions: Your exam, laboratory, and imaging did not reveal a cause of your pelvic pain this morning. This is likely a strain of the deep pelvic muscle. You will be given a short course of medication for this. Return to the emergency room for fever greater than 100, worsening pain despite treatment, development of vomiting or diarrhea, vaginal discharge or bleeding, other concerning symptoms. Follow-up with your doctor this week. Call Friday for an appointment. Print Language: Romanian Coding Level of Care Code ED Manager Of Distribution for Awa Day
[2025-05-15 03:19] LABS: HCG Qualitative Urine. Negative (Negative)
[2025-05-15] MEDS: ondansetron 2 mg/ML SDV 2 mL 4 MG IVP (03:28)
[2025-05-15] MEDS: morphine 4 mg/mL SDV 1 mL IVP (03:30)
--- NOTE | 2025-05-15 03:37 | CTR_ITS ---
PROCEDURE INFORMATION: Exam: CT Abdomen And Pelvis With Contrast Exam date and time: 05/15/2025 3:48 AM Age: 34 years old Clinical indication: Abdominal pain; Localized; Prior surgery; Surgery date: 6+ months; Surgery type: Resection of ovarian tumor; C/O lower abd pain. TECHNIQUE: Imaging protocol: Computed tomography of the abdomen and pelvis with contrast. Radiation optimization: All CT scans at this facility use at least one of these dose optimization techniques: automated exposure control; mA and/or kV adjustment per patient size (includes targeted exams where dose is matched to clinical indication); or iterative reconstruction. Contrast material: OMNI 350; Contrast volume: 100 ml; Contrast route: INTRAVENOUS (IV); COMPARISON: US OB BPP wo NST [id number] 12/30/2023 8:04 AM RADIATION DOSE METRICS: Total DLP (mGy-cm): 882.2 FINDINGS: Liver: Normal. No mass. Gallbladder and biliary ducts: Normal. No calcified stones. No ductal dilation. Pancreas: Normal. No ductal dilation. Spleen: Normal. No splenomegaly. Adrenal glands: Normal. No mass. Kidneys and ureters: Normal. No hydronephrosis. Stomach and bowel: Unremarkable. No obstruction. No mucosal thickening. Appendix: No evidence of acute appendicitis. Normal caliber of the appendix. There is a punctate 2 mm appendicolith at the tail of the pancreas which is incidentally noted. Intraperitoneal space: Trace pelvic free fluid. Vasculature: Unremarkable. No abdominal aortic aneurysm. Lymph nodes: Unremarkable. No enlarged lymph nodes. Urinary bladder: Unremarkable as visualized. Reproductive: Left adnexal cyst measures 4.6 mm. Pelvic ultrasound should be considered for better evaluation. The right adnexa is normal. Bones/joints: Unremarkable. No acute fracture. Soft tissues: Unremarkable. CT/CT abdomen pelvis w con* [id number] IMPRESSION: 1. Left adnexal cyst measures 4.6 mm. Pelvic ultrasound should be considered for better evaluation. 2. No evidence of acute appendicitis. Normal caliber of the appendix. There is a punctate 2 mm appendicolith at the tail of the pancreas which is incidentally noted.
[2025-05-15] MEDS: iohexol 350 mg/mL 500 mL Btl (per mL) IV (03:52)
[2025-05-15 04:32] VITALS: BP 109/77; PULSE 77; RESP 17; O2SAT 98
== END 2025-05-15 04:33 | disposition home or self-care (01) ==
PROVIDERS: Emergency Provider Emergency Medicine; PCP Family Medicine
DX: R10.2 Pelvic and perineal pain (principal)
CPT/HCPCS: 36415; 74177; 80053; 81001; 81025; 84703; 85025; 96374; 96375; 99285; J1885; J2270; J2405

== ENCOUNTER 2025-06-15 12:36 | Emergency (ER) | payer BC, MEDICAID, SELFPAY ==
--- OUTSIDE RECORDS SUMMARY | 2025-06-15 12:41 | XMS_ITS | Clinical Summary ---
Author Organization Anna Simmons Address [address] [address] [place] [address] Phone Care Team Providers Care Recycling Collections Driver Name Role Phone Unavailable Primary Care Provider [...] 2021 INFLUENZA VACCINE (#1) 2025 Insurance MEDICAID [place]
[2025-06-15 12:50] VITALS: BP 119/88; PULSE 97; TEMP 36.9; O2SAT 97; BMI 37.8
--- NOTE | 2025-06-15 13:28 | W.ED.SKABFB ---
HPI - Skin/Abscess/Foreign Bdy General: Chief complaint: Skin/Abscess/Foreign Body Stated complaint: Spider bite on L Knee Time Seen by Provider: 06/15/25 13:17 History of Present Illness: Patient is a 35-year-old female without pertinent medical history presents to the ED with red swollen knee. This has worsened over the last 24-48 hours. Patient believes it is a spider bite, however she did not see the spider. She and killed 2 brown recluse spiders at her residence. She states the pain is severe, worsening redness, and pain with touching. She has not had a known fever, chills, or palpitations. Denies any nausea, vomiting. No history of MRSA. No area that is draining. No previous surgeries to this knee. No injury to this knee. She awoke with this small red area to middle distal patella 3 days ago. This has worsened since that time. Patient delineates oxycodone, tramadol, and hydrocodone have side effects of nausea without having Zofran. Associated symptoms: Deny chills, fever(s), nausea or vomiting Related Data Previous Rx's ?Medication ?Instructions ?Recorded meclizine 50 mg tablet (Antivert) 50 mg PO DAILY PRN dizziness #14 05/01/24 tabs albuterol sulfate 90 mcg/actuation 2 puff inhalation Q4H PRN 05/05/25 aerosol inhaler (Ventolin HFA) shortness of breath or wheezing #8.5 grams amoxicillin 875 mg-potassium 1 tab PO BID 7 days #14 tabs 05/05/25 clavulanate 125 mg tablet fluconazole 150 mg tablet 150 mg PO Q3D 2 doses #2 tabs 05/05/25 ketorolac 10 mg tablet 10 mg PO TID PRN pain #10 tabs 05/15/25 amoxicillin 875 mg-potassium 1 tab PO Q12H #20 tabs 06/15/25 clavulanate 125 mg tablet fluconazole 150 mg tablet 150 mg PO Q3D 3 doses #3 tabs 06/15/25 ketorolac 10 mg tablet 10 mg PO Q8H PRN pain 5 days #14 06/15/25 tabs ondansetron 4 mg disintegrating 4 mg PO Q8H PRN nausea and 06/15/25 tablet vomiting 4 days #14 tabs Allergies Allergy/AdvReac Type Severity Reaction Status Date / Time hydrocodone Allergy ADR-Nausea Verified 06/15/25 12:55 oxycodone (From Percocet) Allergy ADR-Nausea Verified 06/15/25 12:55 prednisone Allergy ALGY-Anaphy Verified 06/15/25 12:55 laxis tramadol Allergy ADR-Seizure Verified 06/15/25 12:55 Review of Systems General: Reports: 10 or more systems reviewed and unremarkable except in HPI and below Const: Denies: fever(s), chills or body aches ENMT: Denies: throat pain or ear or mastoid pain Card: Denies: chest pain or palpitations Resp: Reports: non-productive cough and chest congestion; Denies: dyspnea GI: Denies: abdominal pain, nausea or vomiting Musc: Reports: extremity pain, joint pain, joint redness and joint warmth Skin/Breast: Denies: rash Neuro: Denies: headache(s) or numbness in extremities PFSH ED PFSH: Medical History (Updated 06/15/25 @ 13:53 by ISABEL Trejo) Gestational diabetes No significant past medical history Surgical History No significant past surgical history Family History Father Diabetes Hypertension Stroke Grandmother Ovarian cancer Denies family history of Colon cancer Prostate cancer Heart disease Breast cancer Uterine cancer Thyroid disease Social History Smoking and tobacco/nicotine status: never used tobacco/nicotine Physical Exam Const: COMMON NORMALS: patient oriented x3 HENMT: COMMON NORMALS: normocephalic and atraumatic HEAD & SCALP: normocephalic and atraumatic Lymph: LYMPHATIC: no lymphadenopathy noted Resp: COMMON NORMALS: normal respiratory effort, No retractions and clear to auscultation bilaterally AUSCULTATION: clear to auscultation bilaterally Cardio: COMMON NORMALS: regular rate and regular rhythm RATE: regular rate RHYTHM: regular rhythm GI: COMMON NORMALS: Normal to inspection, nondistended, normoactive bowel sounds present, Soft to palpation and non-tender PALPATION: Yes Soft to palpation : COMMON NORMALS: Yes no CVA tenderness BLADDER/KIDNEY EXAM: Yes no CVA tenderness Back/Pelvis: COMMON NORMALS: no CVA tenderness Extremity: NARRATIVE EXTREMITY EXAM: Central distal patella with 0.5 cm red, with 8 cm warm, tender area surrounding. This is not indurated or full. Extension, flexion is present with pain. Neuro: COMMON NORMALS: patient oriented x3 and moves all extremities Skin: NARRATIVE SKIN EXAM: See extremities above SKIN IMAGES (FEMALE):  1. Redness and warmth area 2. 0.5 cm redness without induration Course Reevaluation(s): Reevaluation #1: Still having issues after [place]. Toradol, Norflex ordered Reevaluation #2: Improved after Norflex, Toradol. Vital Signs: Vital signs: Vital Signs Temperature 98.2 F 06/15/25 14:53 Pulse Rate 86 06/15/25 14:53 Respiratory Rate 23 H 06/15/25 14:53 Blood Pressure 94/58 06/15/25 14:53 Pulse Oximetry 99 06/15/25 14:53 Oxygen Delivery Me thod Room Air 06/15/25 14:53 MDM - Skin/Abscess/Foreign Bdy Medicial Decision Making Patient is 35-year-old female that presents with a left red swollen tender knee. This has worsened over the last 48 hours from discovery 3 days ago. She has killed 2 brown recluse's at her home. She has symptoms consistent with spider bite/brown recluse bite. This will need to be followed closely, antibiotics. There is no area amendable to draining at this time. Would recommend ice to reduce the heat, Tylenol, ibuprofen taken together. Patient was given [place] x 1 here, and is fairly intolerant to narcotics, however with Zofran tends to tolerate better. Will give 2 additional analgesics for home, then have patient utilize Tylenol, ibuprofen with antibiotics instructions. She has requested Diflucan given history of bad yeast infection. I have also encouraged probiotic to avoid yeast infection, or active culture yogurt. All of her questions answered to her satisfaction. After repeat evaluation on patient, she still had quite a bit of pain in her left knee. Toradol, and Norflex has seemed to take care of this issue. Toradol sent to the pharmacy with warnings not to take with any other anti-inflammatory including ibuprofen. Tylenol can be added to this. Patient states appreciation of education, and understands. Will send home with a guidelines as noted. Medical Records I reviewed the patient's medical records. Lab Data I reviewed the patient's lab results. Radiology Impressions Knee X-Ray 06/15/25 13:29 IMPRESSION: 1. No acute osseous injury. 2. Anterior knee soft tissue swelling. XR interpretation done by ED provider, pending radiology final review ED provider radiology interpretation(s): Soft tissue inflammation Discharge Plan Discharge Patient Disposition: Home Clinical Impression: Brown recluse spider bite Qualifiers: Encounter type: initial encounter Injury intent: accidental or unintentional Qualified Code(s): T63.331A - Toxic effect of venom of brown recluse spider, accidental (unintentional), initial encounter Condition: Stable Prescriptions: New ondansetron 4 mg tablet,disintegrating 4 mg PO Q8H PRN (Reason: nausea and vomiting) 4 Days Qty: 14 0RF amoxicillin-pot clavulanate 875-125 mg tablet 1 tab PO Q12H Qty: 20 0RF fluconazole 150 mg tablet 150 mg PO Q3D Qty: 3 0RF Rx Instructions: may repeat second dose 72 hrs after first dose if symptoms persist ketorolac 10 mg tablet 10 mg PO Q8H PRN (Reason: pain) 5 Days Qty: 14 0RF No Action fluconazole 150 mg tablet 150 mg PO Q3D Qty: 2 0RF Rx Instructions: may repeat second dose 72 hrs after first dose if symptoms persist albuterol sulfate [Ventolin HFA] 90 mcg/actuation HFA aerosol inhaler 2 puff inhalation Q4H PRN (Reason: shortness of breath or wheezing) Qty: 8.5 0RF amoxicillin-pot clavulanate 875-125 mg tablet 1 tab PO BID 7 Days Qty: 14 0RF Antivert 50 mg tablet 50 mg PO DAILY PRN (Reason: dizziness) Qty: 14 0RF ketorolac 10 mg tablet 10 mg PO TID PRN (Reason: pain) Qty: 10 0RF Discharge Orders: Discharge ED (Routine); Ordered 06/15/25 Ordered By: Dede Abarca Referrals: Karla Alves DO [Primary Care Provider, FILM DEVELOPING MACHINE OPERATOR] Discharge Diet: Usual diet Discharge Activity: Limit activity as instructed Patient Instructions: Brown Recluse Spider Bite (ED), Patient Portal & Ava Instructions Activity Restrictions/Additional Instructions: - Make sure you clean this area daily with antibacterial soap. If this area opens, cover with nonadherent dressing and still clean daily - As we discussed the antibiotics: Make sure you take with a little bit of food. Make sure you add active culture yogurt daily or probiotic. Caution on infectious diarrhea with antibiotics. This antibiotics also has side effects of diarrhea, so therefore caution on diarrhea. - Return to ED if you have worsening redness, systemic symptoms that include fever, chills, darkening urine. Increase your fluid intake of noncaffeinated beverage. -2 hydrocodone's have been sent home for you to utilize at half?1 as needed for severe pain. Take your ibuprofen/Tylenol together to help with the pain. -Ketorolac/Toradol was sent to the pharmacy. This would substitute ibuprofen. Do not take this with ibuprofen however you can combine this with Tylenol. -Diflucan/fluconazole for possible yeast infection Augmentin/amoxicillin?clavulanate, Zofran/ondansetron have all been sent to your pharmacy. Utilize as directed. Zofran does have side effects of constipation, therefore you may utilize if you do have diarrhea as discussed above. -Take your antibiotic as soon as you pick it up, and get in another dose before bed. Tomorrow start with a.m. and p.m. association with your antibiotics. - Call today to make an appointment with your primary care physician/Dr. Alves for follow-up for continued following. Thank you for choosing [facility] for your healthcare needs today. You have been screened and evaluated and felt safe for discharge. Health conditions do change or evolve sometimes and as such it is important that you follow up with your Primary Doctor to be re checked, 3-5 days is a general good time frame for follow up. You are always welcome to return to the ED for re assessment if your symptoms are worsening or you have new concerns Print Language: Lao Coding Level of Care Code ED Lace Finisher for Awa Day
--- NOTE | 2025-06-15 13:29 | XRR_ITS ---
PROCEDURE INFORMATION: Exam: XR Left Knee Exam date and time: 06/15/2025 1:33 PM Age: 35 years old Clinical indication: Injury or trauma; Other: Spider bite; Additional info: Red, hot, swollen knee TECHNIQUE: Imaging protocol: Radiologic exam of the left knee. Views: 3 views. COMPARISON: No relevant prior studies available. FINDINGS: Bones/joints: No acute fracture or dislocation. A well corticated ossific fragment is seen on the lateral view superimposing the distal femur and not well seen on the AP or oblique views, possibly sequelae of prior trauma. Maintained joint spaces. No evidence of a substantial joint effusion. Soft tissues: Anterior knee soft tissue swelling. XR/XR knee LT 3V* [id number] IMPRESSION: 1. No acute osseous injury. 2. Anterior knee soft tissue swelling.
[2025-06-15] MEDS: HYDROcodone-acetaminophen 10-325 mg Tablet 1 TAB PO (13:53)
[2025-06-15] MEDS: ondansetron hcl ODT 4 mg Tab PO (13:54)
[2025-06-15] MEDS: cefTRIAXone 1,000 MG in water for injection-sterile 2.1 ML 999 MG IM (13:55)
[2025-06-15] MEDS: orphenadrine 30 mg/mL Inj 2 mL 60 MG IM (14:48)
[2025-06-15 14:53] VITALS: BP 94/58; PULSE 86; RESP 23; TEMP 36.8; O2SAT 99
[2025-06-15] MEDS: HYDROcodone-acetaminophen 10-325 mg Tablet 2 TAB PO (15:27)
== END 2025-06-15 15:32 | disposition home or self-care (01) ==
PROVIDERS: Emergency Provider Physician Assistant; PCP Family Medicine
DX: T63.331A Toxic effect of venom of brown recluse spider, accidental (unintentional), initial encounter (principal); X58.XXXA Exposure to other specified factors, initial encounter
CPT/HCPCS: 73562; 96372; 99284; J0696; J1885; J2360; J9999; Q0162

== ENCOUNTER 2025-06-16 14:06 | Emergency (ER) | payer BC, MEDICAID, SELFPAY ==
[2025-06-16 14:20] VITALS: BP 120/83; PULSE 83; RESP 20; TEMP 36.6; O2SAT 98
--- OUTSIDE RECORDS SUMMARY | 2025-06-16 15:16 | XMS_ITS | Clinical Summary ---
Author Organization [facility] Address [address] [place] [address] Phone Care Team Providers Care Manager Of Internal Audit Name Role Phone Unavailable Primary Care Provider [...] 2021 INFLUENZA VACCINE (#1) 2025 Insurance MEDICAID [place]
--- NOTE | 2025-06-16 15:23 | XR_ITS ---
WS: [id number] XR knee LT 3V* [id number] REASON FOR EXAM: swelling, warmth, pain, spider bite FINDINGS: No fracture, periosteal reaction or bone erosion. Joint spaces of the knee are intact and well preserved. No bone erosion XR/XR knee LT 3V* [id number] IMPRESSION: No significant bone or joint abnormality.
[2025-06-16 16:07] LABS: Hematocrit 37.9 % (36-47); Hemoglobin 12.60 g/dL (11.27-16.99); Mean Corpuscular HGB Conc 33.2 g/dL (30-55); Mean Corpuscular Hemoglobin 32.1 pg (27-33); Mean Corpuscular Volume 96.7 fl (85-98); Nucleated Red Blood Cells % 0 %; Platelet Count 283 10^3/cmm (157-399); Red Blood Count 3.92 10^6/uL (3.85-5.65); White Blood Count 11.54 10^3/uL (3.29-11.43)
[2025-06-16 16:24] LABS: Alanine Aminotransferase 66 U/L (0-33); Albumin Level 4.0 g/dL (3.5-5.2); Alkaline Phosphatase 76 U/L (35-105); Anion Gap 16.2 (5-19); Aspartate Amino Transferase 57 U/L (0-32); Blood Urea Nitrogen 12 mg/dL (6-20); Calcium 8.7 mg/dL (8.5-10.5); Carbon Dioxide 24 mmol/L (22-29); Chloride 100 mmol/L (98-107); Creatinine Clr Calc Pharmacy 130.0300; Globulin 3.4 g/dL (1.3-4.6); Glucose 88 mg/dL (65-115); Osmolality Calculated 281 mOsm/kg (285-295); Potassium 4.2 mmol/L (3.5-5.1); Sodium 136 mmol/L (136-145); Total Protein 7.4 g/dL (6.6-8.7)
--- NOTE | 2025-06-16 16:26 | W.ED.ANIMALB ---
HPI - Animal Bite General: Chief Complaint: Animal Bite Stated Complaint: L knee swollen Painful Bite Time Seen by Provider: 06/16/25 14:56 Source: patient Mode of arrival: ambulatory Limitations: no limitations History of Present Illness: Patient is a 35-year-old female with multiple prior ED visits, here yesterday, who is stating she is having worsening left knee pain. She was diagnosed with brown recluse spider bite, had an x-ray yesterday that was negative and she was started on Augmentin. That note is reviewed at this time. She states that the swelling is gotten worse, she has difficulty bearing weight and with range of motion. She has taken 3 doses of her antibiotics. Denies fevers or chills, but states that she has been dizzy. Reports that she has been septic in the past. Has been taking Toradol for pain, she took a [place] this morning and states this did not help. Her vitals are stable at this time, afebrile, she is anxious appearing. She states that the spider bite and her symptoms occurred a few days ago. MD complaint: other (Diagnosed a brown recluse bite, left knee pain and swelling) Onset (ago): day(s) Associated symptoms: Deny chills, fever(s) or headache(s) Related Data Previous Rx's ?Medication ?Instructions ?Recorded meclizine 50 mg tablet (Antivert) 50 mg PO DAILY PRN dizziness #14 05/01/24 tabs albuterol sulfate 90 mcg/actuation 2 puff inhalation Q4H PRN 05/05/25 aerosol inhaler (Ventolin HFA) shortness of breath or wheezing #8.5 grams fluconazole 150 mg tablet 150 mg PO Q3D 2 doses #2 tabs 05/05/25 ketorolac 10 mg tablet 10 mg PO TID PRN pain #10 tabs 05/15/25 amoxicillin 875 mg-potassium 1 tab PO Q12H #20 tabs 06/15/25 clavulanate 125 mg tablet fluconazole 150 mg tablet 150 mg PO Q3D 3 doses #3 tabs 06/15/25 ketorolac 10 mg tablet 10 mg PO Q8H PRN pain 5 days #14 06/15/25 tabs ondansetron 4 mg disintegrating 4 mg PO Q8H PRN nausea and 10/15/25 tablet vomiting 4 days #14 tabs doxycycline hyclate 100 mg tablet 100 mg PO BID 10 days #20 tabs 06/16/25 Allergies Allergy/AdvReac Type Severity Reaction Status Date / Time oxycodone (From Percocet) Allergy ADR-Nausea Verified 06/15/25 12:55 prednisone Allergy ALGY-Anaphy Verified 06/15/25 12:55 laxis tramadol Allergy ADR-Seizure Verified 06/15/25 12:55 Review of Systems General: Reports: 10 or more systems reviewed and unremarkable except in HPI and below Const: Denies: fever(s) or chills Card: Denies: chest pain Resp: Denies: dyspnea or productive cough GI: Denies: abdominal pain, nausea, vomiting or diarrhea : Denies: flank pain Musc: Reports: joint pain, joint swelling, joint redness, joint warmth and limited range of motion; Denies: neck pain, back pain, extremity pain, extremity swelling or muscle weakness Skin/Breast: Denies: rash Neuro: Reports: dizziness; Denies: headache(s), numbness in extremities or weakness in extremities PFSH ED PFSH: Medical History Gestational diabetes No significant past medical history Surgical History No significant past surgical history Family History Father Diabetes Hypertension Stroke Grandmother Ovarian cancer Denies family history of Colon cancer Prostate cancer Heart disease Breast cancer Uterine cancer Thyroid disease Social History Smoking and tobacco/nicotine status: never used tobacco/nicotine Physical Exam Const: COMMON NORMALS: no acute distress, patient oriented x3, no limitations, healthy appearing, alert and well nourished GENERAL APPEARANCE: anxious OTHER: Nontoxic HENMT: COMMON NORMALS: normocephalic and atraumatic HEAD & SCALP: normocephalic and atraumatic Neck/C-Spine: COMMON NORMALS: full ROM, supple and no meningeal signs Resp: COMMON NORMALS: normal respiratory effort, No use of accessory muscles and clear to auscultation bilaterally AUSCULTATION: clear to auscultation bilaterally Cardio: COMMON NORMALS: regular rate and regular rhythm RATE: regular rate RHYTHM: regular rhythm Extremity: COMMON NORMALS: full ROM NARRATIVE EXTREMITY EXAM: Full range of motion of the left knee. There is mild overlying cellulitis and mild edema, diffuse tender to palpation. Distal neurovascular exam of the left lower extremity is normal. Neuro: COMMON NORMALS: patient oriented x3, moves all extremities, no focal motor deficits and no sensory deficits noted SENSORIUM/ORIENTATION: Yes alert MENINGEAL SIGNS: Yes no meningeal signs Skin: COMMON NORMALS: no rashes or lesions noted GENERAL SKIN EXAM: no rashes or lesions noted Course Vital Signs: Vital signs: Vital Signs Temperature 97.9 F 06/16/25 14:20 Pulse Rate 83 06/16/25 14:20 Respiratory Rate 20 H 06/16/25 14:20 Blood Pressure 120/83 06/16/25 14:20 Pulse Oximetry 98 06/16/25 14:20 Oxygen Delivery Me thod Room Air 06/16/25 14:20 MDM - Animal Bite Medical Decision Making This patient presented for reevaluation of diagnosed brown recluse bite. Had stated that her knee was continued to be swelling, warm to the touch and had difficulty bearing weight. On exam there is anterior cellulitis noted, endorsing diffuse tenderness to palpation however the joint itself is not significantly swollen. Her CBC shows very minimal leukocytosis, CRP and ESR are not significantly elevated to make me concerned of any septic arthritis at this time as she is also able to passively range the knee and x-ray does not show any concerning abnormalities. I will switch her to Doxy but I do think that she has not taken enough of the antibiotics to see any drastic improvement, she was given Decadron and morphine here which did help her symptoms. She had been afebrile with no other symptoms of systemic infection and she will be allowed discharge home to continue outpatient therapy and told to return if her condition continues to worsen past 3 to 5 days. Lab Data 06/16/25 15:56 06/16/25 15:56 Radiology Impressions Knee X-Ray 06/16/25 15:23 IMPRESSION: No significant bone or joint abnormality. Laboratory Results WBC 11.54 10^3/uL (3.29-11.43) H 06/16/25 15:56 RBC 3.92 10^6/uL (3.85-5.65) 06/16/25 15:56 Hgb 12.60 g/dL (11.27-16.99) 06/16/25 15:56 Hct 37.9 % (36-47) 06/16/25 15:56 MCV 96.7 fl (85-98) 06/16/25 15:56 MCH 32.1 pg (27-33) 06/16/25 15:56 MCHC 33.2 g/dL (30-55) 06/16/25 15:56 RDW 12.6 % (12.1-15.1) 06/16/25 15:56 Plt Count 283 10^3/cmm (157-399) 06/16/25 15:56 MPV 9.8 fL (7.4-10.4) 06/16/25 15:56 Neut % (Auto) 70.7 % 06/16/25 15:56 Lymph % (Auto) 17.6 % 06/16/25 15:56 Mercer % (Auto) 10.3 % 06/16/25 15:56 Eos % (Auto) 0.6 % 06/16/25 15:56 Baso % (Auto) 0.3 % 06/16/25 15:56 Neut # (Auto) 8.15 10^3/uL (1.8-7.7) H 06/16/25 15:56 Lymph # (Auto) 2.0 10^3/uL (0.8-4.8) 06/16/25 15:56 Mercer # (Auto) 1.2 10^3/uL (0.2-0.9) H 06/16/25 15:56 Eos # (Auto) 0.1 10^3/uL (0.0-0.8) 06/16/25 15:56 Baso # (Auto) 0.0 10^3/uL (0.0-0.1) 06/16/25 15:56 Nucleated RBC % (auto) 0 % 06/16/25 15:56 Nucleated RBCs # 0.0 /100WBC 06/16/25 15:56 ESR 12 mm/hr (0-15) 06/16/25 15:56 Sodium 136 mmol/L (136-145) 06/16/25 15:56 Potassium 4.2 mmol/L (3.5-5.1) 06/16/25 15:56 Chloride 100 mmol/L (98-107) 06/16/25 15:56 Carbon Dioxide 24 mmol/L (22-29) 06/16/25 15:56 Anion Gap 16.2 (5-19) 06/16/25 15:56 BUN 12 mg/dL (6-20) 06/16/25 15:56 Creatinine 0.7 mg/dL (0.5-0.9) 06/16/25 15:56 GFR Calculation 95.8 mL/min (90-130) 06/16/25 15:56 Glucose 88 mg/dL (65-115) 06/16/25 15:56 Calculated Osmolality 281 mOsm/kg (285-295) L 06/16/25 15:56 Calcium 8.7 mg/dL (8.5-10.5) 06/16/25 15:56 Total Bilirubin 0.3 mg/dL (0.15-1.2) 06/16/25 15:56 AST 57 U/L (0-32) H 06/16/25 15:56 ALT 66 U/L (0-33) H 06/16/25 15:56 Alkaline Phosphatase 76 U/L (35-105) 06/16/25 15:56 C-Reactive Protein 32.6 mg/L (0.0-4.9) H 06/16/25 15:56 Total Protein 7.4 g/dL (6.6-8.7) 06/16/25 15:56 Albumin 4.0 g/dL (3.5-5.2) 06/16/25 15:56 Globulin 3.4 g/dL (1.3-4.6) 06/16/25 15:56 All radiology interpretation(s) finalized by discharge Discharge Plan Discharge Patient Disposition: Home Clinical Impression: Brown recluse spider bite Qualifiers: Encounter type: initial encounter Injury intent: accidental or unintentional Qualified Code(s): T63.331A - Toxic effect of venom of brown recluse spider, accidental (unintentional), initial encounter Condition: Stable Prescriptions: New doxycycline hyclate 100 mg tablet 100 mg PO BID 10 Days Qty: 20 0RF Discontinued amoxicillin-pot clavulanate 875-125 mg tablet 1 tab PO BID 7 Days Qty: 14 0RF No Action fluconazole 150 mg tablet 150 mg PO Q3D Qty: 2 0RF Rx Instructions: may repeat second dose 72 hrs after first dose if symptoms persist albuterol sulfate [Ventolin HFA] 90 mcg/actuation HFA aerosol inhaler 2 puff inhalation Q4H PRN (Reason: shortness of breath or wheezing) Qty: 8.5 0RF Antivert 50 mg tablet 50 mg PO DAILY PRN (Reason: dizziness) Qty: 14 0RF ketorolac 10 mg tablet 10 mg PO TID PRN (Reason: pain) Qty: 10 0RF ondansetron 4 mg tablet,disintegrating 4 mg PO Q8H PRN (Reason: nausea and vomiting) 4 Days Qty: 14 0RF amoxicillin-pot clavulanate 875-125 mg tablet 1 tab PO Q12H Qty: 20 0RF fluconazole 150 mg tablet 150 mg PO Q3D Qty: 3 0RF Rx Instructions: may repeat second dose 72 hrs after first dose if symptoms persist ketorolac 10 mg tablet 10 mg PO Q8H PRN (Reason: pain) 5 Days Qty: 14 0RF Discharge Orders: Discharge ED (Routine); Ordered 06/16/25 Ordered By: Jeremy Almanzar Referrals: Karla Alves DO [Primary Care Provider, APPRENTICE PLANT ATTENDANT] Patient Instructions: Patient Portal & Ava Instructions Activity Restrictions/Additional Instructions: Stop taking the Augmentin, please take doxycycline as prescribed. Please continue Toradol at home for pain. Please elevate the extremity and ice it, expect to see improvement over the next few days and make sure to take the rest of your antibiotics despite improvement. Monitor for any persistent fevers, persistent vomiting, worsening of redness or swelling, red streaking, or any other concerns that you have. Print Language: Malagasy Coding Level of Care Code ED Fire Lieutenant for Awa Day
[2025-06-16] MEDS: morphine 4 mg/mL SDV 1 mL IM (17:32)
== END 2025-06-16 17:34 | disposition home or self-care (01) ==
PROVIDERS: Emergency Provider Physician Assistant; PCP Family Medicine
DX: T63.331D Toxic effect of venom of brown recluse spider, accidental (unintentional), subsequent encounter (principal); X58.XXXD Exposure to other specified factors, subsequent encounter
CPT/HCPCS: 36415; 73562; 80053; 85025; 85651; 86140; 96372; 99284; J1100; J2270